=== PATIENT | female | born 1950 | race Caucasian/White ===

== ENCOUNTER 2019-10-06 17:32 | Inpatient (IN) | payer MEDICARE, MEDICAID ==
[~2019-10-06] VITALS: Ht 170.2 cm; Wt 85.9 kg
--- NOTE | 2019-10-06 17:58 | PHYS DOC ---
Past History Past Medical History: CAD, Hypertension Past Medical History Dementia, anxiety, GERD, hypothyroidism, MS, Parkinson's disease Adult General Chief Complaint Chief Complaint: MEDICAL CLEARANCE HPI HPI Patient is a 69-year-old female who presents to the emergency department from her nursing facility, for a medical clearance before admission to the behavioral health unit. According to reports the patient has been having increasing depression, not actively suicidal. She state that she is depressed. She is oriented to person and place. She denies any complaints of pain at this time. She has a chronic indwelling Ruffin catheter which she states is for urinary incontinence. There are no alleviating or exacerbating factors to her symptoms. She states she does not know why she feels so depressed, but referral paperwork sites generalized declining health. Review of Systems Review of Systems Constitutional: Denies fever or chills [] Eyes: Denies change in visual acuity, redness, or eye pain [] HENT: Denies nasal congestion or sore throat [] Respiratory: Denies cough or shortness of breath [] Cardiovascular: The patient denies any shortness of breath, chest pain, palpitations, or orthopnea[] GI: Denies abdominal pain, nausea, vomiting, bloody stools or diarrhea [] : Denies dysuria or hematuria [] Musculoskeletal: Denies back pain or joint pain [] Integument: Denies rash or skin lesions [] Neurologic: Denies headache, focal weakness or sensory changes [] Endocrine: Denies polyuria or polydipsia [] All other systems were reviewed and found to be within normal limits, except as documented in this note. Physical Exam Physical Exam PHYSICAL EXAM: CONSTITUTIONAL: Well developed, well nourished HEAD: normocephalic, atraumatic EENT: PERRL, EOMI. Conjunctivae normal color, sclerae non-icteric; moist mucous membranes. NECK: Supple, non-tender; no meningismus. LUNGS: Lungs CTA, breathing even and unlabored. Normal air movement. HEART: Regular rate and rhythm, no murmur CHEST: No deformity; non-tender ABDOMEN: The abdomen is soft, and non-tender, no masses or bruits. EXTREM: Normal ROM; no deformity, no calf tenderness. Normal pulses palpable in all extremities. There is no pedal edema. SKIN: No rash; no diaphoresis NEURO: Alert; normal speech and cognition; CN's grossly intact; strength grossly intact without focal deficit. BACK: No CVA TTP. Current Patient Data Lab Results Laboratory Tests Test 10/06/19 18:00 10/06/19 19:56 White Blood Count 9.9 x10^3/uL Red Blood Count 5.28 x10^6/uL Hemoglobin 15.0 g/dL Hematocrit 47.1 % Mean Corpuscular Volume 89 fL Mean Corpuscular Hemoglobin 28 pg Mean Corpuscular Hemoglobin Concent 32 g/dL Red Cell Distribution Width 14.0 % Platelet Count 275 x10^3/uL Neutrophils (%) (Auto) 66 % Lymphocytes (%) (Auto) 22 % Monocytes (%) (Auto) 6 % Eosinophils (%) (Auto) 5 % Basophils (%) (Auto) 1 % Neutrophils # (Auto) 6.6 x10^3uL Lymphocytes # (Auto) 2.2 x10^3/uL Monocytes # (Auto) 0.6 x10^3/uL Eosinophils # (Auto) 0.5 x10^3/uL Basophils # (Auto) 0.1 x10^3/uL Sodium Level 143 mmol/L Potassium Level 3.7 mmol/L Chloride Level 106 mmol/L Carbon Dioxide Level 23 mmol/L Anion Gap 14 Blood Urea Nitrogen 21 mg/dL Creatinine 1.4 mg/dL Estimated GFR (Cockcroft-Gault) 37.3 BUN/Creatinine Ratio 15 Glucose Level 101 mg/dL Calcium Level 9.1 mg/dL Magnesium Level 2.1 mg/dL Total Bilirubin 0.5 mg/dL Aspartate Amino Transf (AST/SGOT) 66 U/L Alanine Aminotransferase (ALT/SGPT) 130 U/L Alkaline Phosphatase 120 U/L Total Protein 7.1 g/dL Albumin 3.5 g/dL Albumin/Globulin Ratio 1.0 Urine Collection Type Unknown Urine Color Ai Urine Clarity Turbid Urine pH 7.5 Urine Specific [place] 1.025 Urine Protein 100 mg/dl Urine Glucose (UA) Neg mg/dL Urine Ketones (Stick) Neg mg/dL Urine Blood Small Urine Nitrite Pos Urine Bilirubin Neg Urine Urobilinogen Dipstick 0.2 mg/dL Urine Leukocyte Esterase Large Urine RBC 6-10 /HPF Urine WBC >40 /HPF Urine Squamous Epithelial Cells Occ /LPF Urine Amorphous Sediment Present /HPF Urine Bacteria Many /HPF EKG EKG Normal sinus rhythm at a rate of 76 beats for minute, left axis deviation, normal intervals. Poor anterior R progression without acute ischemic ST/T changes.[] Radiology/Procedures Radiology/Procedures [] Course & Med Decision Making Course & Med Decision Making Pertinent Labs studies reviewed. (See chart for details) [] Dragon Disclaimer Dragon Disclaimer This electronic medical record was generated, in whole or in part, using a voice recognition dictation system. Departure Departure: Impression: Primary Impression: Depression Additional Impression: Urinary tract infection Disposition: ADMITTED INPATIENT Admitting Physician: Other (behavioral health unit) Condition: STABLE Problem Qualifiers CRISELDA LAGOS MD Oct 06, 2019 17:58
--- NOTE | 2019-10-06 18:05 | EKG ---
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
[2019-10-06 18:34] LABS: BASO # 0.1 x10^3/uL (0.0-0.2); BASO % 1 % (0-3); EOS # 0.5 x10^3/uL (0.0-0.7); EOS % 5 % (0-3); HEMATOCRIT 47.1 % (36.0-47.0); LYMPH # 2.2 x10^3/uL (1.0-4.8); LYMPH % 22 % (24-48); MEAN CORPUSCULAR HEMOGLOBIN 28 pg (25-35); MEAN CORPUSCULAR HGB CONC 32 g/dL (31-37); MEAN CORPUSCULAR VOLUME 89 fL (79-100); MONO # 0.6 x10^3/uL (0.0-1.1); MONO % 6 % (0-9); NEUT # 6.6 x10^3uL (1.8-7.7); NEUT % 66 % (31-73); PLATELET COUNT 275 x10^3/uL (140-400); RED BLOOD COUNT 5.28 x10^6/uL (3.50-5.40); WHITE BLOOD COUNT 9.9 x10^3/uL (4.0-11.0)
[2019-10-06 18:37] LABS: CALCIUM 9.1 mg/dL (8.5-10.1); CREATININE 1.4 mg/dL (0.6-1.0); GFR 37.3; POTASSIUM 3.7 mmol/L (3.5-5.1)
[2019-10-06 18:43] LABS: ALBUMIN 3.5 g/dL (3.4-5.0); MAGNESIUM 2.1 mg/dL (1.8-2.4); TOTAL BILIRUBIN 0.5 mg/dL (0.2-1.0); TOTAL PROTEIN 7.1 g/dL (6.4-8.2)
[2019-10-06 20:47] LABS: AMORPHOUS SEDIMENT,UR PRESENT /HPF; BACTERIA,URINE MANY /HPF (0-FEW); BILIRUBIN,URINE NEG (NEG); CLARITY,URINE TURBID; COLOR,URINE AMBER; GLUCOSE,URINE NEG (NEG); NITRITE,URINE POS (NEG); SQUAMOUS EPITHELIAL CELL,UR OCC /LPF; UROBILINOGEN,URINE 0.2 mg/dL (0.2 mg/dL); WBC,URINE >40 /HPF (0-4)
[2019-10-06] MEDS ORDERED: CEPHALEXIN 250 MG CAPSULE PO ONE (21:00)
--- NOTE | 2019-10-06 22:05 | NUR ---
Admission Note with Justification for Admission to [facility] Patient admitted to [facility] for protective oversight for emergency stabilization of acute psychiatric crisis. Pt admitted from: SNF after [facility] ER medical clearance Mode of arrival: EMS Accompanied By: EMS/NSO Precipitating behaviors that initiated intake and admission: increased depression, wants to end it Description of failure of out patient attempts at stabilization in previous setting list behavior and medication trials: counseling and med changes Behaviors and assessment findings upon admission: alert, cooperative VSS, confused, chronic vazquez in place with malodorous urine Plan: Admit for protective oversight for adjustment and stabilization of medications, behaviors and mood. Intense treatment regimen including groups, medication adjustments, therapy, consistent regimen for ADL's, self care, and sleep hygiene. Daily monitoring by Inpatient staff, Psychiatry, and Medical Physician.
[2019-10-06 23:06] VITALS: BP 168/87
[2019-10-07] MEDS ORDERED: ACETAMINOPHEN 325 MG TABLET PO PRN
[2019-10-07] MEDS ORDERED: METHYL SALICYLATE/MENTHOL TOPICAL OINTMENT 57GM TUBE. TP PRN
[2019-10-07] MEDS ORDERED: MAG HYDROX/AL HYDROX/SIMETH 30 ML ORAL.SUSP PO PRN
[2019-10-07] MEDS ORDERED: AMAN100T PO (00:58)
[2019-10-07] MEDS ORDERED: LOPE2TAB27 PO (00:58)
[2019-10-07] MEDS ORDERED: NYST15PO9 TP (00:58)
[2019-10-07] MEDS ORDERED: ASPI81TA50 PO (00:58)
[2019-10-07] MEDS ORDERED: VITA1TAB31 PO (00:58)
[2019-10-07] MEDS ORDERED: AMLO5TAB4 PO (00:58)
[2019-10-07] MEDS ORDERED: BACL10TA PO (00:58)
[2019-10-07] MEDS ORDERED: CETI10TA24 PO (00:58)
[2019-10-07] MEDS ORDERED: PARO10TA57 PO (00:58)
[2019-10-07] MEDS ORDERED: CRAN450T3 PO (00:58)
[2019-10-07] MEDS ORDERED: LEVO112T4 PO (00:58)
[2019-10-07] MEDS ORDERED: DEXT15LI7 PO (00:58)
[2019-10-07] MEDS ORDERED: POLY17PO5 PO (00:58)
[2019-10-07] MEDS ORDERED: SENN1TAB99 PO (00:58)
[2019-10-07] MEDS ORDERED: FAMO-63 PO (00:58)
[2019-10-07] MEDS ORDERED: IBUP400T18 PO (00:58)
[2019-10-07] MEDS ORDERED: PYRI25TA3 PO (00:58)
[2019-10-07] MEDS ORDERED: FOLI20CA PO (00:58)
[2019-10-07] MEDS ORDERED: FOLI0.8T33 PO (00:58)
[2019-10-07] MEDS ORDERED: BUSP5TAB PO (00:58)
[2019-10-07] MEDS ORDERED: POLY15DR27 EACHEYE (00:58)
[2019-10-07 06:42] VITALS: BP 172/90
[2019-10-07] MEDS ORDERED: DEXTROMETHORPHAN HBR PO PRN (07:45)
[2019-10-07] MEDS ORDERED: LOPERAMIDE HCL 2 MG PO PRN (07:45)
[2019-10-07] MEDS ORDERED: LOPERAMIDE 2 MG CAPSULE PO PRN (08:00)
[2019-10-07] MEDS ORDERED: AMANTADINE HCL 100 MG PO SCH (09:00)
[2019-10-07] MEDS ORDERED: PYRIDOXINE HCL 50 MG PO SCH (09:00)
[2019-10-07] MEDS ORDERED: NON FORMULARY ITEM (Folic Acid 1 CAP) PO SCH (09:00)
[2019-10-07] MEDS ORDERED: CRANBERRY FRUIT PO SCH (09:00)
[2019-10-07] MEDS: ASPIRIN ENTERIC COATED 81 MG TABLET.DR. PO SCH (09:00)
[2019-10-07] MEDS ORDERED: VITAMIN K2 PO SCH (09:00)
[2019-10-07] MEDS ORDERED: VITAMIN D3 PO SCH (09:00)
[2019-10-07] MEDS: SENNOSIDES/DOCUSATE 8.6/50MG TABLET. PO SCH ×2 (09:46→19:57)
[2019-10-07] MEDS: FOLIC ACID 1 MG TABLET PO SCH (09:46)
[2019-10-07] MEDS: CETIRIZINE HCL 10 MG TABLET PO SCH (09:47)
[2019-10-07] MEDS: BACLOFEN 10 MG TABLET PO SCH ×2 (09:47→16:09)
[2019-10-07] MEDS: busPIRone 5 MG TABLET. PO SCH ×3 (09:47→19:58)
[2019-10-07] MEDS: amLODIPine BESYLATE 5 MG TABLET PO SCH (09:47)
[2019-10-07] MEDS: FAMOTIDINE 20 MG TABLET PO SCH (09:48)
[2019-10-07] MEDS: AMANTADINE HCL 100 MG CAPSULE PO SCH (10:09)
[2019-10-07] MEDS: PYRIDOXINE 50 MG TABLET. PO SCH (10:09)
[2019-10-07] MEDS: POLYVINYL ALCOHOL 1.4% OPHTH SOLUTION 15ML BOTTLE. OU SCH ×2 (10:10→19:58)
[2019-10-07] MEDS: CHOLECALCIFEROL (VITAMIN D3) 1,000 UNIT TABLET PO SCH (10:20)
--- NOTE | 2019-10-07 11:42 | NUR ---
PSYCHOSOCIAL ASSESSMENT ADMISSION DATE: 10/06/19 CONTACT INFORMATION: DPOA/Guardian Contact Name: Not Enacted - Chavez Elmore (Michael) Contact Address: [place], [place] Contact Phone #: [phone] ETHNIC ORIGIN: REASONS FOR ADMISSION: Depressed and Suicidal ideation - passive thoughts ADDITIONAL ADMISSION COMMENTS: Per pt. intake, pt. is increasingly depressed, wants it to end but denies SI, crying spells, declining ultrasound, sad about multiple health issues requiring placement, and wants to go to sleep and not wake up. REASON FOR ADMISSION IN PATIENT/FAMILY'S OWN WORDS: Per pt., "I guess cause I said I wanted to ." "They thought I wanted to kill myself." "I just have a big mouth." PATIENT/FAMILY EXPECTATIONS FOR ADMISSION: Per pt., "I don't have any hopes, just to make it through the time and get back to [place]. LIVING SITUATION: [facility] Contact Name: [facility] Contact Address: [place] [address] Contact Phone #: [phone] Contact Fax #: [phone] FAMILY RELATIONS: Marital Status: # of Marriages: 1 Pt. shared she has been for approximately 20 years. # of Children: 0 [facility] Family Support: Pt. is a self-sign. SIGNIFICANT PSYCHIATRIC/MEDICAL HISTORY: Psychiatric/Treatment History: Per pt., "no". Per pt. intake, pt. has Parkinson's, MS, anxiety, Dementia with BD, and MDD. Pertinent Family History: Per pt., "I don't think so." HISTORICAL DATA: Childhood Environment: "It was good." Pt. grew up, in [place], with her mother, father, and two younger brothers, Silvano and Andrew. Pt. brothers and father are still living. Psychological Abuse: None Drug Abuse History last 12 months: No - Pt. reports she drink occasionally. 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 is interested in "theater, performance, live performance, concerts, and tv." Financial support/resources: Social Security Monthly income: Unknown Person handling finances: Pt. believes her father, Oumar, is in charge of her finances. Do you have a history of legal problems: N Cultural considerations: "I don't think so." SOCIAL RELATIONSHIPS-CURRENT/PAST: Psychiatrist: None PCP: Dr. Campos Counselor/Therapist: Dr. Mercer, psychologist [facility] [facility]: None Support Group: None Health Type Technician/Log Chain Worker: None Other relationships: None STRENGTHS & WEAKNESSES: Patient's strengths: Stable living arrangement and Approachable Patient's weaknesses: Health problems and Passive Suicidal Thoughts PRELIMINARY PLAN OF TREATMENT: Preliminary plan: Decrease Symptoms Depression, Promote Coping Skill, No Suicidal Ideation, Medication Stabilization, and Monitor Med Effects DISCHARGE PLANNING: Discharge planning/disposition: Current Living Arrangement ADDITIONAL INFORMATION: Pt. was able to supply the information need for this assessment and has given permission to speak to her brother, Chavez, if needed. Pt. also stated, "I have MS" and "I am overly dramatic".
[2019-10-07 13:42] LABS: THYROID STIM HORMONE (TSH) 1.904 uIU/mL (0.358-3.740)
[2019-10-07] MEDS: FOLIC/VIT B COMP W-C (RENAL) TABLET. PO SCH (16:09)
[2019-10-07 16:28] VITALS: BP 157/85
[2019-10-07 17:07] LABS: THYROXINE 12.5 ug/dL (4.5-12.0)
--- NOTE | 2019-10-07 17:50 | NUR ---
Pt alert and oriented to self and situation. Pt calm, compliant with meds and assessment, pleasant and interactive. Pt also states she has no intention of harming herself, that she just is dramatic and has a big mouth sometimes. She said sometimes she just gets down about her health and her situation.
[2019-10-07] MEDS: PARoxetine 10 MG TABLET PO SCH (19:57)
--- NOTE | 2019-10-07 21:23 | PDOC ---
Exam Note: Matt Note: Please also refer to the separate dictated note~for this date of service dictated separately. Discussed the patient with Nursing staff reviewed the chart.~Reviewed interim history and current functioning. Reviewed vital signs,~Labs/ Radiology~and current medications noted below. Continue current treatment with the changes noted in the dictated addendum note Assessment: Vital Signs/I&O: Vital Signs Date Time Temp Pulse Resp B/P (MAP) Pulse Ox O2 Delivery O2 Flow Rate FiO2 10/07/19 16:28 98.3 100 16 157/85 (109) 96 10/07/19 06:42 Room Air I & O 10/06/19 10/06/19 10/07/19 15:00 23:00 07:00 Output Total 500 ml Balance -500 ml Current Medications: Meds: Current Medications Medications (Trade) Dose Ordered Sig/Juanpablo Route PRN Reason Start Time Stop Time Status Last Admin Dose Admin Amlodipine Besylate (Norvasc) 5 mg DAILY PO 10/07/19 09:00 10/07/19 09:47 Aspirin (Aspirin Enteric Coated) 81 mg DAILY PO 10/07/19 09:00 10/07/19 09:00 Baclofen (Lioresal) 10 mg BID94 PO 10/07/19 09:00 10/07/19 16:09 Buspirone HCl (Buspar) 2.5 mg [id number] PO 10/07/19 09:00 10/07/19 19:58 Cetirizine HCl (ZyrTEC) 10 mg DAILY PO 10/07/19 09:00 10/07/19 09:47 Famotidine (Pepcid) 40 mg DAILY PO 10/07/19 09:00 10/07/19 09:48 Multivit/Ca Carb/ B Cmplx/FA/Prenat (Nephro-Raymond) 1 tab DAILY16 PO 10/07/19 16:00 10/07/19 16:09 Paroxetine HCl (Paxil) 10 mg HS PO 10/07/19 21:00 10/07/19 19:57 Artificial Tears (Artificial Tears) 2 drop BID OU 10/07/19 09:00 10/07/19 19:58 Senna/Docusate Sodium (Senna Plus) 1 tab BID PO 10/07/19 09:00 10/07/19 19:57 Amantadine HCl (Symmetrel) 100 mg DAILY PO 10/07/19 09:00 10/07/19 10:09 Folic Acid (Folic Acid) 1 mg DAILY PO 10/07/19 09:00 10/07/19 09:46 Pyridoxine HCl (Vitamin B-6) 50 mg DAILY PO 10/07/19 09:00 10/07/19 10:09 Vitamin D (Vitamin D3) 5,000 unit DAILY PO 10/07/19 09:00 10/07/19 10:20 I have reviewed the current psychotropics carefully including drug interactions. Risk benefit ratio favors no change other than as noted in my dictated progress note. Diagnosis: Problems: (1) Depression (2) Suicidal ideation KELLY MARIE MD Oct 07, 2019 21:23
[2019-10-07] MEDS: IBUPROFEN 400 MG TABLET. PO PRN (22:00)
--- NOTE | 2019-10-07 23:59 | CONS ---
DATE OF CONSULTATION: 10/07/2019 REASON FOR CONSULTATION: Medical management. HISTORY OF PRESENT ILLNESS: The patient is a 69-year-old female patient, a resident at [facility], who was admitted on account of increasing depression, wants it to end, but is denying any suicidal ideation, sad about multiple health problems that require placement in a facility, having crying spells and states that she wants to go to sleep and not wake up, all this in a background of severe major depressive disorder. PAST MEDICAL HISTORY: Significant for multiple sclerosis, Parkinson disease, hypertension, hypothyroidism, neurogenic bladder, coronary artery disease, constipation, chronic kidney disease, anemia, and gastroesophageal reflux disease. PAST PSYCHIATRIC HISTORY: Significant for anxiety, major depressive disorder and dementia with behavioral disturbances. PAST SURGICAL HISTORY: Significant for tonsillectomy. FAMILY HISTORY: Noncontributory. SOCIAL HISTORY: She is single, never , has no children. She never smoked, used to drink alcohol occasionally. 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 ALLERGIES: She has no known drug allergies. MEDICATIONS: She is currently on following medications: She is on cetirizine 10 mg once a day, baclofen 10 mg twice a day, amlodipine besylate 5 mg daily, aspirin 81 mg once a day, ibuprofen 400 mg every 4 hours, paroxetine 10 mg daily at bedtime, buspirone 2.5 mg 3 times a day, amantadine 100 mg daily, dextromethorphan 10 mL every 8 hours for cough, polyvinyl alcohol for artificial tears 2 drops to both eyes twice a day, loperamide 2 mg daily p.r.n. for diarrhea, polyethylene glycol 17 grams daily, Senna-S twice a day, famotidine 40 mg once a day, levothyroxine sodium 112 mcg once a day, nystatin powder topically twice a day, folic acid 1 capsule daily, folic acid vitamin B complex for Nephro-Raymond 1 tablet once a day, pyridoxine 50 mg once a day, vitamin D plus K once a day, cranberry fruit 475 mg twice a day. PHYSICAL EXAMINATION: GENERAL: When I examined her, she looked well and was clearly in no apparent respiratory distress. There was no pallor, jaundice, cyanosis or thyromegaly. No jugular venous distention. No limb edema. VITAL SIGNS: Her heart rate was 81, blood pressure 157/85, temperature 98.3, respiratory rate was 16, and oxygen saturation was 96%. HEAD, EYES, EARS, NOSE AND THROAT: Showed normocephalic, atraumatic. NECK: Supple. HEART: Showed normal first and second heart sounds. No gallop or murmur. CHEST: Clear to auscultation. No crepitation or rhonchi. ABDOMEN: Distended, soft, nontender. NEUROLOGIC: She is awake, alert, responding appropriately. Cranial nerves intact. She moves upper extremities without difficulty. She has functional paraplegia with neurogenic bladder requiring suprapubic catheter. LABORATORY WORK: Showed a white cell count 9900, hemoglobin 15, hematocrit 47, MCV 89 and platelet count 275,000. Her serum sodium was 143, potassium 3.7, chloride 106, bicarbonate 23, anion gap of 14, BUN 21, creatinine 1.4, estimated GFR was 57 mL per minute. Her glucose 101, calcium was 9.1, magnesium was 2.1. Her serum iron 42, TIBC 268 and iron saturation was 16 ng. Her total bilirubin is normal; however, AST, ALT, alkaline phosphatase are all elevated. Total protein was 7.1, albumin 3.5. Serum triglyceride was 190, total cholesterol 182, LDL cholesterol was 98, VLDL was 38, HDL was 46 and the ratio was 3. Her TSH was normal at 1.904. Urinalysis showed the urine was positive for nitrite. There was large amount of leukocyte esterase, 6-10 rbc's, and more than 40 wbc's, and many bacteria. IMPRESSION: In summary, this is a 69-year-old female patient, a resident at [facility], who was admitted on account of increased depression, wanting it to end, although she is denying suicidal ideation, sad about multiple health problems that require placement in a facility, having crying spells and stated that she wants to go to sleep and not wake up. The patient has multiple medical problems including multiple sclerosis, Parkinson disease, hypertension, hypothyroidism, gastroesophageal reflux disease, neurogenic bladder, constipation, and anemia. All in all, the patient seems to be medically stable. Her urinalysis probably indicates that she has a urinary tract infection and probably needs urine to be sent for culture and sensitivity. Other than that, I would continue all her other medications as they are now. I will follow all her other lab works that are still pending at the time of this dictation and make any necessary recommendation. Thank you Dr. Enrique for allowing me to participate in the care of this patient. TORY CHAVIS MD DR: AXEL/rima JOB#: [id number] / [id number]
[2019-10-08 00:07] LABS: HEMOGLOBIN A1C 5.3 % (4.8-5.6)
--- NOTE | 2019-10-08 00:18 | NUR ---
Last evening pt sat in day room watching a movie. She has been pleasant and cooperative and denies SI. Meds taken whole without difficulty. PRN ibuprofen given for SANCHEZ at HS and she has been sleeping well. No behaviors tonight.
[2019-10-08 06:37] VITALS: BP 132/80
[2019-10-08] MEDS: ASPIRIN ENTERIC COATED 81 MG TABLET.DR. PO SCH (08:54)
[2019-10-08] MEDS: POLYVINYL ALCOHOL 1.4% OPHTH SOLUTION 15ML BOTTLE. OU SCH ×2 (08:54→21:09)
[2019-10-08] MEDS: LEVOTHYROXINE 112 MCG TABLET PO SCH (08:54)
[2019-10-08] MEDS: busPIRone 5 MG TABLET. PO SCH ×3 (08:54→21:09)
[2019-10-08] MEDS: SENNOSIDES/DOCUSATE 8.6/50MG TABLET. PO SCH ×2 (08:55→21:08)
[2019-10-08] MEDS: FAMOTIDINE 20 MG TABLET PO SCH (08:55)
[2019-10-08] MEDS: BACLOFEN 10 MG TABLET PO SCH ×2 (08:55→17:12)
[2019-10-08] MEDS: FOLIC ACID 1 MG TABLET PO SCH (08:55)
[2019-10-08] MEDS: amLODIPine BESYLATE 5 MG TABLET PO SCH (08:55)
[2019-10-08] MEDS: CETIRIZINE HCL 10 MG TABLET PO SCH (08:57)
[2019-10-08] MEDS: CHOLECALCIFEROL (VITAMIN D3) 1,000 UNIT TABLET PO SCH (08:57)
[2019-10-08] MEDS: PYRIDOXINE 50 MG TABLET. PO SCH (08:57)
[2019-10-08] MEDS: AMANTADINE HCL 100 MG CAPSULE PO SCH (08:57)
--- NOTE | 2019-10-08 09:45 | NUR ---
ACTIVITY THERAPY ASSESSMENT: Pt was sitting down in her wheel chair in the hallway during the assessment. Pt was calm, smiling, and willing to talk. Pt can verbally express herself and uses a wheel chair to ambulate due to MS (multiple sclerosis). Pt has long black, greyish hair and wears her hair in a pony tail design and she wears glasses. Pt remembers her past, family, location, present, and she makes eye contact, listens and responds during communication. Pt is and she the eldest born of three. She has two brothers whom live near close by. Pt enjoys music, theatre, live music, movies, funk, jazz, singing, reading, and most of all she enjoys people. 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 INITAIL TREATMENT GOAL: Pt will increase recreation education and motivation by engaging in at least five activity therapy groups per week. Addendum: 10/13/19 at 1218 by JEAN-PAUL CARBAJAL ACT Goal changed 10/13/2019: Pt. will participate in all Activity Therapy groups she is invited to.
--- NOTE | 2019-10-08 12:59 | NUR ---
Pt is calm, cooperative, compliant. No agitation, no aggression, no hallucinations, no delusions. She is compliant with her medication and assessment.
[2019-10-08 16:29] VITALS: BP 119/76
[2019-10-08] MEDS: FOLIC/VIT B COMP W-C (RENAL) TABLET. PO SCH (17:20)
[2019-10-08] MEDS: PARoxetine 10 MG TABLET PO SCH (21:08)
[2019-10-08] MEDS: IBUPROFEN 400 MG TABLET. PO PRN (21:11)
--- NOTE | 2019-10-08 21:21 | HP ---
ADMIT DATE: 10/07/2019 PSYCHIATRY ADMISSION HISTORY/EVALUATION This late entry date of service 10/07/2019 covers the elements not covered in my initial note. IDENTIFYING DATA: The patient is a 69-year-old female referred to us from [facility] by Dr. Campos, primary care physician on account of worsening symptoms of depression with suicidal ideation and "she wants to end it." The patient minimizes suicidal ideation, but admits to being sad about multiple health problems that require placement in a facility. She has been having crying spells and wants to "go to sleep and not wake up." She does have multiple sclerosis, Parkinson's disease, hypertension, heart disease, hypothyroidism, GERD and all of these medical issues are overwhelming for her. I met with the patient in the evening of 10/07/2019. CHIEF COMPLAINT: "Yes, I am depressed, but I am not going to hurt myself." HISTORY OF PRESENT ILLNESS: The patient has a history of worsening symptoms of depression, feeling hopeless, helpless, and worthless. She has had some sleep and appetite changes, suicidal ideation, which she minimizes. No clear history of bipolar disorder. Cognitively, she is reasonably intact. PAST PSYCHIATRIC HISTORY: As above. She has been seeing Dr. Mercer psychologist at the facility. MEDICAL HISTORY: Positive for multiple sclerosis, Parkinson's disease, hypertension, heart disease, hypothyroidism, GERD, allergic rhinitis, neurogenic bladder, coronary artery disease, chronic constipation, chronic kidney disease, and anemia. ACCU-CHEKS: None. DRUG ALLERGIES: Negative. CODE STATUS: Full code. DIET: Regular. Takes medications whole. Ambulates in wheelchair. UA reflexed to culture. Received 1 dose of Keflex in the ER. CURRENT PSYCHOTROPICS: Paxil 10 mg a day, BuSpar 2.5 mg t.i.d. FAMILY HISTORY: Noncontributory. SOCIAL HISTORY: No history of alcohol, drug abuse, physical, sexual or elder abuse. She is not known to be a perpetrator. 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 REACTION TO HOSPITALIZATION: The patient accepting of it. ASSETS: Cognitively intact, supportive, living at the facility. MENTAL STATUS EXAMINATION: The patient was seen individually in the evening of 10/07/2019. She is in a wheelchair, oriented reasonably. Speech is coherent. Thought processes goal directed. Intellect is average. Insight is good. Judgment is intact. Mood is depressed, though she denies suicidal ideation. Affect is mood congruent. IMPRESSION: Major depressive disorder, recurrent; anxiety disorder, unspecified; mild cognitive impairment. Rest diagnoses as above. PLAN: Admit to Geropsychiatry Unit at [facility]. I will see the patient daily individually from a psychiatric standpoint. Medical followup with Dr. Christina. Continue the patient on her current psychotropics. Consider increasing BuSpar and Paxil. If paranoia is evident, may consider Abilify both for the paranoia and to augment the antidepressant. We will make all these decisions post baseline assessment. Estimated length of stay 10-12 days. DISPOSITION: Plans back to senior care when stable. MAN Gaurav MARIE MD DR: JANIYA/rima JOB#: [id number] / [id number]
--- NOTE | 2019-10-08 21:22 | PDOC ---
Exam Note: Matt Note: Please also refer to the separate dictated note~for this date of service dictated separately.~Patient seen individually. Discussed the patient with Nursing staff reviewed the chart.~Reviewed interim history and current functioning. Reviewed vital signs,~Labs/ Radiology~and current medications noted below. Continue current treatment with the changes noted in the dictated addendum note Assessment: Vital Signs/I&O: Vital Signs Date Time Temp Pulse Resp B/P (MAP) Pulse Ox O2 Delivery O2 Flow Rate FiO2 10/08/19 16:29 97.6 94 16 119/76 (90) 96 Room Air I & O 10/07/19 10/07/19 10/08/19 15:00 23:00 07:00 Intake Total 240 ml 480 ml 240 ml Balance 240 ml 480 ml 240 ml Current Medications: Meds: Current Medications Medications (Trade) Dose Ordered Sig/Juanpablo Route PRN Reason Start Time Stop Time Status Last Admin Dose Admin Levothyroxine Sodium (Synthroid) 112 mcg DAILYAC PO 10/08/19 07:30 10/08/19 08:54 I have reviewed the current psychotropics carefully including drug interactions. Risk benefit ratio favors no change other than as noted in my dictated progress note. Diagnosis: Problems: (1) Anxiety disorder (2) Depression (3) Major depressive disorder, recurrent episode (4) Suicidal ideation (5) Impulse control disorder KELLY MARIE MD Oct 08, 2019 21:22
--- NOTE | 2019-10-08 23:53 | NUR ---
Nursing Note Pt states "I had no intention of killing myself, I was just angry about having MS, and who wouldn't be? So then they send me to this fucking [facility] bin where I don't belong, I need to get the fuck out of here!!" I told her that her feelings are just that her feelings, and that we are a short stay unit. I told her she had every right to be angry and that anyone in her situation would feel angry about the loss of control and loss of independence. Pt was thankful to have someone listen and validate her feelings.
[2019-10-09 06:33] VITALS: BP 119/77
[2019-10-09] MEDS: ASPIRIN ENTERIC COATED 81 MG TABLET.DR. PO SCH (08:23)
[2019-10-09] MEDS: FAMOTIDINE 20 MG TABLET PO SCH (08:24)
[2019-10-09] MEDS: FOLIC ACID 1 MG TABLET PO SCH (08:24)
[2019-10-09] MEDS: SENNOSIDES/DOCUSATE 8.6/50MG TABLET. PO SCH ×2 (08:24→19:55)
[2019-10-09] MEDS: amLODIPine BESYLATE 5 MG TABLET PO SCH (08:24)
[2019-10-09] MEDS: BACLOFEN 10 MG TABLET PO SCH ×2 (08:24→17:14)
[2019-10-09] MEDS: busPIRone 5 MG TABLET. PO SCH ×3 (08:24→19:55)
[2019-10-09] MEDS: AMANTADINE HCL 100 MG CAPSULE PO SCH (08:25)
[2019-10-09] MEDS: CETIRIZINE HCL 10 MG TABLET PO SCH (08:25)
[2019-10-09] MEDS: CHOLECALCIFEROL (VITAMIN D3) 1,000 UNIT TABLET PO SCH (08:25)
[2019-10-09] MEDS: PYRIDOXINE 50 MG TABLET. PO SCH (08:25)
[2019-10-09] MEDS: LEVOTHYROXINE 112 MCG TABLET PO SCH (08:26)
[2019-10-09] MEDS: POLYVINYL ALCOHOL 1.4% OPHTH SOLUTION 15ML BOTTLE. OU SCH ×2 (08:26→19:56)
--- NOTE | 2019-10-09 10:51 | NUR ---
She is compliant with her medication and assessment. Pt is calm, cooperative, compliant. No agitation, no aggression, no hallucinations, no delusions.
--- NOTE | 2019-10-09 11:30 | NUR ---
Pts dad called and stated he spoke with pt and she stated she was angry. Nurse informed pts dad that she would follow up with pt. Nurse spoke with pt, pt stated "yeah I'm angry, I'm angry I'm here." Pt verbalized to nurse and BRASS MOLDER that she was attempting to verbalize her feelings to staff at [facility] and that she felt staff did not listen to her and now "I'm in a looney bin." Nurse and BRASS MOLDER offered emotional support and validated pts feelings. Nurse offered pt 1:1 time with nurse. Nurse braided pts hair and spoke more in depth about her statement. Pt stated she meant that she has taken her diagnosis of MS in stride and that she has never complained and many other people are worse off than her. She said she was trying to verbalize that she was frustrated with having to live her life that way if was and that is all she meant when she made the comment "I wish I were ." Nurse also offered pt cecelia fire and redirected pt to the dayroom.
[2019-10-09 16:16] VITALS: BP 135/82
--- NOTE | 2019-10-09 16:26 | NUR ---
Dr. Christina informed of pts urine C & S new order for levaquin 250mg daily X 7 days.
[2019-10-09] MEDS ORDERED: levoFLOXacin 250 MG TABLET PO SCH (17:00)
[2019-10-09] MEDS: FOLIC/VIT B COMP W-C (RENAL) TABLET. PO SCH (17:14)
[2019-10-09] MEDS: IBUPROFEN 400 MG TABLET. PO PRN (19:54)
[2019-10-09] MEDS: LACTOBACILLUS RHAMNOSUS GG 1 CAPSULE. PO SCH (19:54)
[2019-10-09] MEDS: NYSTATIN TOPICAL POWDER 15GM BOTTLE. TP PRN (19:54)
[2019-10-09] MEDS: PARoxetine 10 MG TABLET PO SCH (19:55)
[2019-10-09] MEDS: levoFLOXacin 250 MG TABLET PO SCH (19:55)
[2019-10-09] MEDS ORDERED: INTE30SY IM (21:03)
[2019-10-09] MEDS ORDERED: HYDR-2759 PO (21:11)
[2019-10-09] MEDS ORDERED: IPRA3AMP29 NEB (21:11)
[2019-10-09] MEDS: INTERFERON BETA 30 MCG IM SCH (21:15)
--- NOTE | 2019-10-09 21:27 | PDOC ---
Exam Note: Matt Note: Please also refer to the separate dictated note~for this date of service dictated separately.~Patient seen individually. Discussed the patient with Nursing staff reviewed the chart.~Reviewed interim history and current functioning. Reviewed vital signs,~Labs/ Radiology~and current medications noted below. Continue current treatment with the changes noted in the dictated addendum note Assessment: Vital Signs/I&O: Vital Signs Date Time Temp Pulse Resp B/P (MAP) Pulse Ox O2 Delivery O2 Flow Rate FiO2 10/09/19 16:16 97.7 90 20 135/82 (99) 95 10/08/19 16:29 Room Air I & O 10/08/19 10/08/19 10/09/19 15:00 23:00 07:00 Intake Total 570 ml 360 ml 240 ml Output Total 500 ml Balance 570 ml -140 ml 240 ml Current Medications: Meds: Current Medications Medications (Trade) Dose Ordered Sig/Juanpablo Route PRN Reason Start Time Stop Time Status Last Admin Dose Admin Buspirone HCl (Buspar) 5 mg BEV198 PO 10/09/19 09:00 10/09/19 19:55 Lactobacillus Rhamnosus (Culturelle) 1 cap BID PO 10/09/19 21:00 10/09/19 19:54 Levofloxacin (Levaquin) 250 mg Q24H PO 10/09/19 21:00 10/15/19 21:01 10/09/19 19:55 I have reviewed the current psychotropics carefully including drug interactions. Risk benefit ratio favors no change other than as noted in my dictated progress note. Diagnosis: Problems: (1) Depression (2) Anxiety disorder (3) Suicidal ideation (4) Major depressive disorder, recurrent episode (5) Impulse control disorder (6) Mild cognitive impairment KELLY MARIE MD Oct 09, 2019 21:27
[2019-10-09] MEDS ORDERED: ALBUTEROL SULFATE 2.5 MG/3 ML NEBU. NEB PRN (21:30)
--- NOTE | 2019-10-10 | NUR ---
Nursing Note Pt reiterates that she doesn't belong here with all these crazy people in this fucking looney bin, states she wants to leave and is bored here. Gave her a cecelia and she stated that it helps keep things off her mind, a good distraction. Also she is upset that she had to move into a [facility], again control and independence loss. Pt inquired about her MS injection, orders written from home med list. Pt cooperative and compliant.
[2019-10-10] MEDS: LEVOTHYROXINE 112 MCG TABLET PO SCH (06:00)
[2019-10-10 06:01] VITALS: BP 145/75
[2019-10-10] MEDS: BACLOFEN 10 MG TABLET PO SCH ×2 (08:36→16:48)
[2019-10-10] MEDS: FOLIC ACID 1 MG TABLET PO SCH (08:36)
[2019-10-10] MEDS: ASPIRIN ENTERIC COATED 81 MG TABLET.DR. PO SCH (08:36)
[2019-10-10] MEDS: LACTOBACILLUS RHAMNOSUS GG 1 CAPSULE. PO SCH ×2 (08:36→20:20)
[2019-10-10] MEDS: DULoxetine HCL 30 MG CAPSULE.DR PO SCH (08:36)
[2019-10-10] MEDS: busPIRone 5 MG TABLET. PO SCH ×3 (08:36→20:19)
[2019-10-10] MEDS: amLODIPine BESYLATE 5 MG TABLET PO SCH (08:37)
[2019-10-10] MEDS: SENNOSIDES/DOCUSATE 8.6/50MG TABLET. PO SCH ×2 (08:37→20:20)
[2019-10-10] MEDS: AMANTADINE HCL 100 MG CAPSULE PO SCH (08:37)
[2019-10-10] MEDS: FAMOTIDINE 20 MG TABLET PO SCH (08:37)
[2019-10-10] MEDS: PYRIDOXINE 50 MG TABLET. PO SCH (08:38)
[2019-10-10] MEDS: CETIRIZINE HCL 10 MG TABLET PO SCH (08:38)
[2019-10-10] MEDS: CHOLECALCIFEROL (VITAMIN D3) 1,000 UNIT TABLET PO SCH (08:38)
[2019-10-10] MEDS: POLYVINYL ALCOHOL 1.4% OPHTH SOLUTION 15ML BOTTLE. OU SCH ×2 (09:00→20:22)
--- NOTE | 2019-10-10 10:44 | NUR ---
Pt is calm, cooperative, compliant. No agitation, no aggression, no hallucinations, no delusions. She is compliant with her medication and assessment.
--- NOTE | 2019-10-10 11:39 | NUR ---
KIRA left msg. for KIRA Be at [facility], to give her an update on pt. progress. Addendum: 10/11/19 at 1151 by SIOBHAN MALONE KIRA left a second msg. for KIRA Be at [facility].
--- NOTE | 2019-10-10 14:45 | PN ---
DATE: 10/09/2019 PSYCHIATRIC PROGRESS NOTE This late entry 10/09/2019 covers elements not covered in my initial note. SUBJECTIVE: I met with the patient evening of 10/09/2019. Per RONNIE Sprague, the patient slept 6-1/2 hours previous night. She remains depressed, states she is frustrated with her medical condition, specifically the multiple sclerosis. She has crying spells at times. REVIEW OF SYSTEMS: Positive for the chronic pain, impaired ambulation, in wheelchair. No CV, , pulmonary, eye system symptoms on review. She might have UTI. MENTAL STATUS EXAM: Reasonably oriented. Speech is coherent, has some latency. Abstraction fair, computation impaired, language function intact. Mood and affect still depressed. No active suicidal ideation. LABORATORY DATA: Reviewed. IMPRESSION: Major depressive disorder, recurrent, severe anxiety disorder, unspecified; chronic pain. PLAN: Taper and stop the Paxil down to 5 mg a day for 5 days and stop it and start Cymbalta 30 mg a day for 3 days, then 60 mg a day. Maintain BuSpar 5 mg t.i.d. Rest unchanged for now. MAN Gaurav MARIE MD DR: JANIYA/rima JOB#: [id number] / [id number]
--- NOTE | 2019-10-10 14:48 | PN ---
DATE: 10/10/2019 PSYCHIATRIC PROGRESS NOTE This late entry 10/08/2019 covers elements not covered in my initial note. SUBJECTIVE: I met with the patient evening of 10/08/2019. According to RONNIE Sprague, the patient slept 5-3/4 hours previous night. She remains somewhat anxious, dramatic regarding possibility of UTI, did better earlier in the day. REVIEW OF SYSTEMS: Ambulation impaired, in wheelchair. No CV, , pulmonary, eye, ENT system symptoms on review. MENTAL STATUS EXAMINATION: The patient is reasonably oriented. Speech is coherent, abstraction fair, computation impaired, language function intact, attention span short. Mood and affect remains anxious, depressed. LABORATORY DATA: Reviewed. IMPRESSION: Unchanged from initial note. PLAN: Increase BuSpar from 2.5 mg t.i.d. to 5 mg t.i.d. Continue Paxil 10 mg a day. Consider changing to Cymbalta given her chronic pain symptoms and that the SNRIs might be more effective than the SSRI Paxil. Addressed this with the family. KELLY MARIE MD DR: JANIYA/rima JOB#: [id number] / [id number]
--- NOTE | 2019-10-10 15:07 | TX PLAN ---
Interdisciplinary Tx Plan Admission Information Oct 06, 2019 at 21:58 Legal Status (on Admission): Voluntary DPOA/Guardian Name: Not Enacted - Brandt Elmore Contact Other Contact Name: [facility] Other Contact Verified Code Status: Full Code Allergies: Coded Allergies: No Known Drug Allergies (Unverified , 10/06/19) Estimated Length of Stay: 10 Diagnoses Primary Diagnosis: MDD Severe Reasons for Admission: Depressed, Suicidal ideation Problem in Patient's Words: Per pt., "I guess cause I said I wanted to ." "They thought I wanted to kill myself." "I just have a big mouth." Problems Active Problems: Per pt. intake, pt. is increasingly depressed, wants it to end but denies SI, crying spells, declining ultrasound, sad about multiple health issues requiring placement, wants to go to sleep and not wake up. Inactive Problems: Pt. is compliant with medication and assessments. Pt Strengths/Limitations Ability for Drew: Poor Cognitive Functioning/Ability: Good Communication Skills/Ability: Good Financial Resources: Fair Insight/Judgement: Fair Intellectual Ability: Good Physical Health: Poor Social Skills: Good Stability in Family: Fair Verbal Skills: Good Discharge Criteria Discharge Criteria: No need for close observ., Adequate arrangements @DC, Improved mood/thought Preliminary Discharge Plan Preliminary DC Plan: Current Living Arrange. Special Precautions Special Precautions: Suicide Risk Fall Risk: High Other Precautions (specify): As noted on intake, pt. has passive thoughts of SI. Initial D/C Plan Pt. will return to [facility] once stable. Identified Discharge Needs: Follow Up with PCP and Psychologist Currently Utilized Resources Currently Utilized Resources/P: Dr. Campos - PCP Dr. Mercer - Psychologist Identified Problems/Hx/Goals Objectives/Short-Term Goals Short Term Goals: Dec. Symp. Depression, Medication Stabilization, Monitor Med Effects, No Suicidal/Beena. 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 Community Follow-up Follow Up with PCP & Psychologist Community Provider/Family Inpu: Pt. is a self sign. Treatment Plan Explained Patient/Allergist/Immunologist Physician had this treatment plan explained to him/her as indicated by the signature below and has been given the opportunity to ask questions and make suggestions: Date: Patient/Allergist/Immunologist Physician Signature: Patient/Allergist/Immunologist Physician Decline: No Additional Comments Pt. will be invited to participate in treatment team. SIOBHAN WHYTE Oct 10, 2019 15:07
[2019-10-10 15:51] VITALS: BP 147/47
[2019-10-10] MEDS: FOLIC/VIT B COMP W-C (RENAL) TABLET. PO SCH (16:48)
[2019-10-10] MEDS: PARoxetine 10 MG TABLET PO SCH (20:19)
[2019-10-10] MEDS: levoFLOXacin 250 MG TABLET PO SCH (20:19)
[2019-10-10] MEDS: NYSTATIN TOPICAL POWDER 15GM BOTTLE. TP PRN (20:21)
--- NOTE | 2019-10-10 21:18 | PDOC ---
Exam Note: Matt Note: Please also refer to the separate dictated note~for this date of service dictated separately.~Patient seen individually. Discussed the patient with Nursing staff reviewed the chart.~Reviewed interim history and current functioning. Reviewed vital signs,~Labs/ Radiology~and current medications noted below. Continue current treatment with the changes noted in the dictated addendum note Assessment: Vital Signs/I&O: Vital Signs Date Time Temp Pulse Resp B/P (MAP) Pulse Ox O2 Delivery O2 Flow Rate FiO2 10/10/19 15:51 97.0 90 18 147/47 (80) 96 10/08/19 16:29 Room Air I & O 10/09/19 10/09/19 10/10/19 15:00 23:00 07:00 Intake Total 840 ml 360 ml 120 ml Balance 840 ml 360 ml 120 ml Current Medications: Meds: Current Medications Medications (Trade) Dose Ordered Sig/Juanpablo Route PRN Reason Start Time Stop Time Status Last Admin Dose Admin Levothyroxine Sodium (Synthroid) 112 mcg DAILY06 PO 10/10/19 06:00 10/10/19 06:00 Paroxetine HCl (Paxil) 5 mg HS PO 10/10/19 21:00 10/15/19 09:00 10/10/19 20:19 Duloxetine HCl (Cymbalta) 30 mg DAILY PO 10/10/19 09:00 10/12/19 21:00 10/10/19 08:36 I have reviewed the current psychotropics carefully including drug interactions. Risk benefit ratio favors no change other than as noted in my dictated progress note. Diagnosis: Problems: (1) Mild cognitive impairment (2) Anxiety disorder (3) Suicidal ideation (4) Major depressive disorder, recurrent episode (5) Impulse control disorder KELLY MARIE MD Oct 10, 2019 21:17
--- NOTE | 2019-10-10 23:43 | NUR ---
This evening pt sat in day room quietly playing games on a tablet. Meds were taken whole without difficulty. Denies Si, no behaviors tonight.
[2019-10-11] MEDS: LEVOTHYROXINE 112 MCG TABLET PO SCH (06:03)
[2019-10-11 06:20] VITALS: BP 138/82
[2019-10-11] MEDS: AMANTADINE HCL 100 MG CAPSULE PO SCH (08:29)
[2019-10-11] MEDS: LACTOBACILLUS RHAMNOSUS GG 1 CAPSULE. PO SCH ×2 (08:29→19:43)
[2019-10-11] MEDS: FAMOTIDINE 20 MG TABLET PO SCH (08:29)
[2019-10-11] MEDS: ASPIRIN ENTERIC COATED 81 MG TABLET.DR. PO SCH (08:29)
[2019-10-11] MEDS: busPIRone 5 MG TABLET. PO SCH ×3 (08:29→19:43)
[2019-10-11] MEDS: PYRIDOXINE 50 MG TABLET. PO SCH (08:29)
[2019-10-11] MEDS: POLYVINYL ALCOHOL 1.4% OPHTH SOLUTION 15ML BOTTLE. OU SCH ×2 (08:29→19:42)
[2019-10-11] MEDS: CHOLECALCIFEROL (VITAMIN D3) 1,000 UNIT TABLET PO SCH (08:30)
[2019-10-11] MEDS: SENNOSIDES/DOCUSATE 8.6/50MG TABLET. PO SCH ×2 (08:30→19:43)
[2019-10-11] MEDS: BACLOFEN 10 MG TABLET PO SCH ×2 (08:30→16:50)
[2019-10-11] MEDS: FOLIC ACID 1 MG TABLET PO SCH (08:30)
[2019-10-11] MEDS: DULoxetine HCL 30 MG CAPSULE.DR PO SCH (08:30)
[2019-10-11] MEDS: CETIRIZINE HCL 10 MG TABLET PO SCH (08:31)
[2019-10-11] MEDS: amLODIPine BESYLATE 5 MG TABLET PO SCH (08:31)
[2019-10-11 09:38] LABS: BASO % 1 % (0-3); EOS # 0.4 x10^3/uL (0.0-0.7); EOS % 6 % (0-3); HEMATOCRIT 41.9 % (36.0-47.0); HEMOGLOBIN 13.5 g/dL (12.0-15.5); LYMPH # 1.4 x10^3/uL (1.0-4.8); LYMPH % 20 % (24-48); MEAN CORPUSCULAR HEMOGLOBIN 28 pg (25-35); MEAN CORPUSCULAR HGB CONC 32 g/dL (31-37); MEAN CORPUSCULAR VOLUME 87 fL (79-100); MONO # 0.3 x10^3/uL (0.0-1.1); MONO % 4 % (0-9); NEUT # 4.8 x10^3uL (1.8-7.7); NEUT % 69 % (31-73); PLATELET COUNT 276 x10^3/uL (140-400); RED BLOOD COUNT 4.82 x10^6/uL (3.50-5.40); RED CELL DISTRIBUTION WIDTH 13.7 % (11.5-14.5); WHITE BLOOD COUNT 6.9 x10^3/uL (4.0-11.0)
[2019-10-11 09:46] LABS: ALBUMIN 3.3 g/dL (3.4-5.0); ALBUMIN/GLOBULIN RATIO 0.9 (1.0-1.7); CALCIUM 9.4 mg/dL (8.5-10.1); CREATININE 1.5 mg/dL (0.6-1.0); GFR 34.4; POTASSIUM 3.5 mmol/L (3.5-5.1); TOTAL BILIRUBIN 0.5 mg/dL (0.2-1.0); TOTAL PROTEIN 6.8 g/dL (6.4-8.2)
--- NOTE | 2019-10-11 10:57 | NUR ---
Nursing Note Pt in the dining room, tearful and verbally expressing her frustrations why she's here, she denies hurting herself states "I am not gonna hurt myself! I just feel like I haven't done anything for the 69 years I'm living..and now I'm here and I live in a prison!" No aggression. No delusions.
[2019-10-11 16:10] VITALS: BP 143/82
[2019-10-11] MEDS: MAGNESIUM HYDROXIDE 2,400 MG/30 ML ORAL.SUSP. PO PRN (16:50)
[2019-10-11] MEDS: FOLIC/VIT B COMP W-C (RENAL) TABLET. PO SCH (16:50)
--- NOTE | 2019-10-11 18:34 | NUR ---
Nursing Note Pt c/o requested medication for constipation. Bowel sounds were hypoactive. MOM given per eMAR.
[2019-10-11] MEDS: PARoxetine 10 MG TABLET PO SCH (19:42)
[2019-10-11] MEDS: levoFLOXacin 250 MG TABLET PO SCH (19:43)
--- NOTE | 2019-10-11 21:28 | PDOC ---
Exam Note: Matt Note: Please also refer to the separate dictated note~for this date of service dictated separately.~Patient seen individually. Discussed the patient with Nursing staff reviewed the chart.~Reviewed interim history and current functioning. Reviewed vital signs,~Labs/ Radiology~and current medications noted below. Continue current treatment with the changes noted in the dictated addendum note Assessment: Vital Signs/I&O: Vital Signs Date Time Temp Pulse Resp B/P (MAP) Pulse Ox O2 Delivery O2 Flow Rate FiO2 10/11/19 16:10 97.4 85 18 143/82 (102) 96 10/08/19 16:29 Room Air I & O 10/10/19 10/10/19 10/11/19 14:59 22:59 06:59 Intake Total 1080 ml 360 ml 240 ml Output Total 400 ml Balance 1080 ml -40 ml 240 ml Labs: Laboratory Tests Test 10/11/19 09:23 White Blood Count 6.9 x10^3/uL (4.0-11.0) Red Blood Count 4.82 x10^6/uL (3.50-5.40) Hemoglobin 13.5 g/dL (12.0-15.5) Hematocrit 41.9 % (36.0-47.0) Mean Corpuscular Volume 87 fL (79-100) Mean Corpuscular Hemoglobin 28 pg (25-35) Mean Corpuscular Hemoglobin Concent 32 g/dL (31-37) Red Cell Distribution Width 13.7 % (11.5-14.5) Platelet Count 276 x10^3/uL (140-400) Neutrophils (%) (Auto) 69 % (31-73) Lymphocytes (%) (Auto) 20 % (24-48) L Monocytes (%) (Auto) 4 % (0-9) Eosinophils (%) (Auto) 6 % (0-3) H Basophils (%) (Auto) 1 % (0-3) Neutrophils # (Auto) 4.8 x10^3uL (1.8-7.7) Lymphocytes # (Auto) 1.4 x10^3/uL (1.0-4.8) Monocytes # (Auto) 0.3 x10^3/uL (0.0-1.1) Eosinophils # (Auto) 0.4 x10^3/uL (0.0-0.7) Basophils # (Auto) 0.0 x10^3/uL (0.0-0.2) Sodium Level 144 mmol/L (136-145) Potassium Level 3.5 mmol/L (3.5-5.1) Chloride Level 106 mmol/L (98-107) Carbon Dioxide Level 29 mmol/L (21-32) Anion Gap 9 (6-14) Blood Urea Nitrogen 25 mg/dL (7-20) H Creatinine 1.5 mg/dL (0.6-1.0) H Estimated GFR (Cockcroft-Gault) 34.4 BUN/Creatinine Ratio 17 (6-20) Glucose Level 130 mg/dL (70-99) H Calcium Level 9.4 mg/dL (8.5-10.1) Total Bilirubin 0.5 mg/dL (0.2-1.0) Aspartate Amino Transferase (AST) 32 U/L (15-37) Alanine Aminotransferase (ALT) 60 U/L (14-59) H Alkaline Phosphatase 106 U/L (46-116) Total Protein 6.8 g/dL (6.4-8.2) Albumin 3.3 g/dL (3.4-5.0) L Albumin/Globulin Ratio 0.9 (1.0-1.7) L Current Medications: I have reviewed the current psychotropics carefully including drug interactions. Risk benefit ratio favors no change other than as noted in my dictated progress note. Diagnosis: Problems: (1) Mild cognitive impairment (2) Anxiety disorder (3) Suicidal ideation (4) Major depressive disorder, recurrent episode (5) Impulse control disorder KELLY MARIE MD Oct 11, 2019 21:28
--- NOTE | 2019-10-12 00:13 | PN ---
DATE: 10/10/2019 PSYCHIATRIC PROGRESS NOTE This late entry 10/10/2019 covers elements not covered in my initial note. SUBJECTIVE: I met with the patient evening of October 09. Per RONNIE Benavides, the patient slept 6 hours previous night. She did well previous evening and during the day on October 09. She remains depressed, anxious, minimizes this, however, and thoroughly denied suicidal ideation. REVIEW OF SYSTEMS: Ambulation impaired, in wheelchair. No CV, , pulmonary, eye system symptoms on review. MENTAL STATUS EXAM: Oriented to herself, situation and generally reasonably oriented. Speech is coherent, has some latency. Abstraction fair, computation impaired, language function intact. Mood and affect still depressed, anxious, but showing improvement. LABORATORY DATA: Reviewed. IMPRESSION: Unchanged from initial note including urinary tract infection; major depressive disorder, severe; anxiety disorder, unspecified. PLAN: Continue psychotropics from initial note. Paxil is being tapered and stopped. She remains on Cymbalta, which is being increased, and BuSpar 5 mg at bedtime. MAN Gaurav MARIE MD DR: JANIYA/rima JOB#: [id number] / [id number]
--- NOTE | 2019-10-12 02:02 | NUR ---
This shift pt has been quiet and cooperative. Last evening she sat in day room watching tv and playing games on a tablet. She was social when engaged took meds whole without difficulty. No behaviors tonight.
[2019-10-12] MEDS: LEVOTHYROXINE 112 MCG TABLET PO SCH (05:45)
[2019-10-12 05:57] VITALS: BP 156/77
[2019-10-12] MEDS: CETIRIZINE HCL 10 MG TABLET PO SCH (09:00)
[2019-10-12] MEDS: GLUCOSAMINE/CHOND 500/400MG CAPSULE PO SCH (09:05)
[2019-10-12] MEDS: FAMOTIDINE 20 MG TABLET PO SCH (09:05)
[2019-10-12] MEDS: IBUPROFEN 400 MG TABLET. PO PRN (09:05)
[2019-10-12] MEDS: CHOLECALCIFEROL (VITAMIN D3) 1,000 UNIT TABLET PO SCH (09:06)
[2019-10-12] MEDS: LACTOBACILLUS RHAMNOSUS GG 1 CAPSULE. PO SCH ×2 (09:06→19:29)
[2019-10-12] MEDS: ASPIRIN ENTERIC COATED 81 MG TABLET.DR. PO SCH (09:06)
[2019-10-12] MEDS: amLODIPine BESYLATE 5 MG TABLET PO SCH (09:06)
[2019-10-12] MEDS: POLYVINYL ALCOHOL 1.4% OPHTH SOLUTION 15ML BOTTLE. OU SCH ×2 (09:06→19:28)
[2019-10-12] MEDS: busPIRone 5 MG TABLET. PO SCH ×3 (09:06→19:28)
[2019-10-12] MEDS: PYRIDOXINE 50 MG TABLET. PO SCH (09:07)
[2019-10-12] MEDS: BACLOFEN 10 MG TABLET PO SCH ×2 (09:07→16:44)
[2019-10-12] MEDS: DULoxetine HCL 30 MG CAPSULE.DR PO SCH (09:07)
[2019-10-12] MEDS: AMANTADINE HCL 100 MG CAPSULE PO SCH (09:07)
[2019-10-12] MEDS: FOLIC ACID 1 MG TABLET PO SCH (09:07)
[2019-10-12] MEDS: SENNOSIDES/DOCUSATE 8.6/50MG TABLET. PO SCH ×2 (09:07→19:29)
--- NOTE | 2019-10-12 14:59 | NUR ---
Nursing note: Pt in day room for morning meds and assessment. She was pleasant, med compliant, and cooperative with assessment. Pt c/o pain in her legs and requested PRN. PRN given per eMAR and pain was much better upon reassessment. Pt appeared to be having a lot of fun participating in this morning's activity group. Pt has remained in the day room for most of the day, playing games on the tablet when not participating in group. Will continue to monitor.
[2019-10-12] MEDS ORDERED: CHOLECALCIFEROL (VITAMIN D3) 50,000 UNIT CAPSULE PO SCH (15:30)
[2019-10-12 15:57] VITALS: BP 125/77
[2019-10-12] MEDS: FOLIC/VIT B COMP W-C (RENAL) TABLET. PO SCH (16:44)
[2019-10-12] MEDS: levoFLOXacin 250 MG TABLET PO SCH (19:28)
[2019-10-12] MEDS: PARoxetine 10 MG TABLET PO SCH (19:29)
--- NOTE | 2019-10-12 21:20 | PDOC ---
Exam Note: Matt Note: Please also refer to the separate dictated note~for this date of service dictated separately.~Patient seen individually. Discussed the patient with Nursing staff reviewed the chart.~Reviewed interim history and current functioning. Reviewed vital signs,~Labs/ Radiology~and current medications noted below. Continue current treatment with the changes noted in the dictated addendum note Assessment: Vital Signs/I&O: Vital Signs Date Time Temp Pulse Resp B/P (MAP) Pulse Ox O2 Delivery O2 Flow Rate FiO2 10/12/19 15:57 97.9 94 18 125/77 (93) 95 10/08/19 16:29 Room Air I & O 10/11/19 10/11/19 10/12/19 15:00 23:00 07:00 Intake Total 960 ml 720 ml Output Total 400 ml Balance 560 ml 720 ml Current Medications: Meds: Current Medications Medications (Trade) Dose Ordered Sig/Juanpablo Route PRN Reason Start Time Stop Time Status Last Admin Dose Admin Glucosamine/ Chondroitin (Glucosamine-Chondroitin 500/400mg) 1 cap DAILY PO 10/12/19 09:00 10/12/19 09:05 I have reviewed the current psychotropics carefully including drug interactions. Risk benefit ratio favors no change other than as noted in my dictated progress note. Diagnosis: Problems: (1) Mild cognitive impairment (2) Depression (3) Anxiety disorder (4) Suicidal ideation (5) Major depressive disorder, recurrent episode (6) Impulse control disorder KELLY MARIE MD Oct 12, 2019 21:20
[2019-10-12] MEDS: HYDROcodone/APAP 5/325MG 1 TAB TABLET PO PRN (21:39)
--- NOTE | 2019-10-12 22:31 | PN ---
DATE: 10/11/2019 PSYCHIATRIC PROGRESS NOTE This late entry 10/11/2019 covers elements not covered in my initial note. SUBJECTIVE: I met with the patient evening of 10/11/2019. Per RONNIE Rizzo, the patient slept 6-1/2 hours previous night. She was tearful in the morning, stating she does not belong here and I processed this with her. She states she is lonely, has no family, medically compromised due to her MS and other health conditions and feels depressed, but denies suicidal ideation. She has no children and able to process this individually. REVIEW OF SYSTEMS: Ambulation impaired, in wheelchair. No CV, , pulmonary, eye system symptoms on review. MENTAL STATUS EXAM: Reasonably oriented. Speech is coherent, has some latency. Abstraction fair, computation impaired, language function intact. Mood and affect still depressed, but better. LABORATORY DATA: Reviewed. IMPRESSION: Unchanged from initial note. PLAN: No change from initial note. KELLY MARIE MD DR: JANIYA/rima JOB#: [id number] / [id number]
--- NOTE | 2019-10-13 00:12 | NUR ---
Last evening pt sat in in day room playing [employer] on a tablet. Meds were taken whole without difficulty. She requested med for constipation and MOM given also reports pain and difficulty sleeping PRN Lortab was given and she is now sleeping. No behaviors tonight. Denies SI.
[2019-10-13 06:08] VITALS: BP 130/77
[2019-10-13] MEDS: POLYVINYL ALCOHOL 1.4% OPHTH SOLUTION 15ML BOTTLE. OU SCH ×2 (09:45→20:11)
[2019-10-13] MEDS: PYRIDOXINE 50 MG TABLET. PO SCH (09:45)
[2019-10-13] MEDS: busPIRone 5 MG TABLET. PO SCH ×3 (09:45→20:11)
[2019-10-13] MEDS: CHOLECALCIFEROL (VITAMIN D3) 50,000 UNIT CAPSULE PO SCH ×2 (09:45→09:50)
[2019-10-13] MEDS: GLUCOSAMINE/CHOND 500/400MG CAPSULE PO SCH (09:45)
[2019-10-13] MEDS: ASPIRIN ENTERIC COATED 81 MG TABLET.DR. PO SCH (09:46)
[2019-10-13] MEDS: IBUPROFEN 400 MG TABLET. PO PRN (09:46)
[2019-10-13] MEDS: FOLIC/VIT B COMP W-C (RENAL) TABLET. PO SCH (09:46)
[2019-10-13] MEDS: LACTOBACILLUS RHAMNOSUS GG 1 CAPSULE. PO SCH ×2 (09:46→20:11)
[2019-10-13] MEDS: FOLIC ACID 1 MG TABLET PO SCH (09:46)
[2019-10-13] MEDS: FAMOTIDINE 20 MG TABLET PO SCH (09:46)
[2019-10-13] MEDS: SENNOSIDES/DOCUSATE 8.6/50MG TABLET. PO SCH ×2 (09:46→20:10)
[2019-10-13] MEDS: LEVOTHYROXINE 112 MCG TABLET PO SCH (09:46)
[2019-10-13] MEDS: AMANTADINE HCL 100 MG CAPSULE PO SCH (09:46)
[2019-10-13] MEDS: BACLOFEN 10 MG TABLET PO SCH ×2 (09:46→17:08)
[2019-10-13] MEDS: CETIRIZINE HCL 10 MG TABLET PO SCH (09:47)
[2019-10-13] MEDS: amLODIPine BESYLATE 5 MG TABLET PO SCH (09:47)
[2019-10-13] MEDS: DULoxetine HCL 60 MG CAPSULE.DR PO SCH (09:47)
--- NOTE | 2019-10-13 10:00 | NUR ---
Nursing note Pt in day room calm, pleasant, med compliant, and cooperative with assessment. Pt in the day room participated in group and currently playing [employer] on a tablet. She denies SI states "I have no thoughts killing myself. I feel a lot better here. Yes I am depressed but I'm fighting it." Pt c/o pain in her legs and requested PRN. PRN given per eMAR.
[2019-10-13] MEDS: HYDROcodone/APAP 5/325MG 1 TAB TABLET PO PRN ×2 (10:39→20:12)
--- NOTE | 2019-10-13 10:50 | NUR ---
Pt. was present for treatment team and reported she is feeling much better. SW contacted KIRA Be at [facility], to discuss pt. progress and tentative discharge scheduled for 10/19/2019.
--- NOTE | 2019-10-13 11:14 | NUR ---
WEEKLY ACTIVITY THERAPY NOTE Date of Admission: 10/06/2019 Date of AT Assessment:10/08/2019 Goal aimed: to increase recreation education and motivation. Initial Goal: Pt will participate in at least five Activity therapy groups per week. Weekly progress towards goal: exceeded, 05/14 Group participation level: 9 full, 1 mod Weekly highlights: Ezequiel Arce on Thursday: giving clues and acting out charades Behaviors observed: calm, polite, engages well in groups, smiling often Plan: change goal to: Pt. will participate in all Activity Therapy groups she is invited to. Beneficial adaptations:
[2019-10-13 16:21] VITALS: BP 123/72
[2019-10-13] MEDS: PARoxetine 10 MG TABLET PO SCH (20:10)
[2019-10-13] MEDS: levoFLOXacin 250 MG TABLET PO SCH (20:10)
--- NOTE | 2019-10-13 21:20 | PDOC ---
Exam Note: Matt Note: Please also refer to the separate dictated note~for this date of service dictated separately.~Patient seen individually. Discussed the patient with Nursing staff reviewed the chart.~Reviewed interim history and current functioning. Reviewed vital signs,~Labs/ Radiology~and current medications noted below. Continue current treatment with the changes noted in the dictated addendum note Assessment: Vital Signs/I&O: Vital Signs Date Time Temp Pulse Resp B/P (MAP) Pulse Ox O2 Delivery O2 Flow Rate FiO2 10/13/19 20:12 18 Room Air 10/13/19 16:21 98.0 81 123/72 (89) 97 I & O 10/12/19 10/12/19 10/13/19 15:00 23:00 07:00 Intake Total 720 ml 360 ml Balance 720 ml 360 ml Current Medications: Meds: Current Medications Medications (Trade) Dose Ordered Sig/Juanpablo Route PRN Reason Start Time Stop Time Status Last Admin Dose Admin Duloxetine HCl (Cymbalta) 60 mg DAILY PO 10/13/19 09:00 10/13/19 09:47 Vitamin D (Vitamin D3) 50,000 unit WEEKLY PO 10/13/19 08:00 10/13/19 09:50 I have reviewed the current psychotropics carefully including drug interactions. Risk benefit ratio favors no change other than as noted in my dictated progress note. Diagnosis: Problems: (1) Mild cognitive impairment (2) Depression (3) Anxiety disorder (4) Suicidal ideation (5) Major depressive disorder, recurrent episode (6) Impulse control disorder KELLY MARIE MD Oct 13, 2019 21:20
--- NOTE | 2019-10-13 23:21 | NUR ---
Nursing Note The patient was located in her room for her assessment and medication pass. The patient was very pleasant and appropriate during her interactions with this nurse. The patient requested and received PRN Lortab with her HS medications. The patient is currently sleeping in her room.
[2019-10-14] MEDS: LEVOTHYROXINE 112 MCG TABLET PO SCH (06:00)
[2019-10-14] MEDS: POLYVINYL ALCOHOL 1.4% OPHTH SOLUTION 15ML BOTTLE. OU SCH ×2 (06:00→19:50)
[2019-10-14 06:40] VITALS: BP 132/76
[2019-10-14] MEDS: LACTOBACILLUS RHAMNOSUS GG 1 CAPSULE. PO SCH ×2 (08:42→19:50)
[2019-10-14] MEDS: DULoxetine HCL 60 MG CAPSULE.DR PO SCH (08:42)
[2019-10-14] MEDS: SENNOSIDES/DOCUSATE 8.6/50MG TABLET. PO SCH ×2 (08:42→19:49)
[2019-10-14] MEDS: GLUCOSAMINE/CHOND 500/400MG CAPSULE PO SCH (08:42)
[2019-10-14] MEDS: busPIRone 5 MG TABLET. PO SCH ×3 (08:42→19:50)
[2019-10-14] MEDS: FOLIC ACID 1 MG TABLET PO SCH (08:42)
[2019-10-14] MEDS: CETIRIZINE HCL 10 MG TABLET PO SCH (08:42)
[2019-10-14] MEDS: BACLOFEN 10 MG TABLET PO SCH ×2 (08:42→17:36)
[2019-10-14] MEDS: ASPIRIN ENTERIC COATED 81 MG TABLET.DR. PO SCH (08:42)
[2019-10-14] MEDS: amLODIPine BESYLATE 5 MG TABLET PO SCH (08:43)
[2019-10-14] MEDS: FAMOTIDINE 20 MG TABLET PO SCH (08:43)
[2019-10-14] MEDS: PYRIDOXINE 50 MG TABLET. PO SCH (08:43)
[2019-10-14] MEDS: AMANTADINE HCL 100 MG CAPSULE PO SCH (08:43)
[2019-10-14] MEDS: HYDROcodone/APAP 5/325MG 1 TAB TABLET PO PRN (08:49)
--- NOTE | 2019-10-14 10:21 | NUR ---
Pt located in the dining room for med pass. Pt calm, pleasant and cooperative. Compliant with medications and morning shower. PRN Lortab administered per pt request. Pt interactive and participated in morning group. Diego HOLGUIN.
--- NOTE | 2019-10-14 11:42 | NUR ---
New 16F vazquez catheter placed d/t leaking. Pt tolerated well.
[2019-10-14] MEDS: IBUPROFEN 400 MG TABLET. PO PRN (12:55)
[2019-10-14 15:37] VITALS: BP 119/73
[2019-10-14] MEDS: FOLIC/VIT B COMP W-C (RENAL) TABLET. PO SCH (17:37)
[2019-10-14] MEDS: PARoxetine 10 MG TABLET PO SCH (19:50)
--- NOTE | 2019-10-14 19:53 | PN ---
DATE: 10/12/2019 PSYCHIATRIC PROGRESS NOTE This late entry October 11, covers elements not covered in my initial note. SUBJECTIVE: I met with the patient evening of October 11. Per Stacy with [facility], the patient slept 7 hours previous night. She has been cooperative, still depressed, but minimizes this. She denies suicidal ideation. REVIEW OF SYSTEMS: Ambulation impaired, in wheelchair. No CV, , pulmonary, eye system symptoms on review. MENTAL STATUS EXAM: Reasonably oriented. Speech is coherent, abstraction fair, computation impaired, language function intact, attention span short. Mood and affect at times, dysphoric, but she tries to cover this up somewhat anxious. LABORATORY DATA: Reviewed. IMPRESSION: Major depressive disorder in partial remission. Rest unchanged. PLAN: Continue psychotropics from initial note. Gradually increase the Cymbalta in place of the Paxil and maintain the BuSpar. MAN Gaurav MARIE MD DR: JANIYA/rima JOB#: [id number] / [id number]
--- NOTE | 2019-10-14 19:54 | PN ---
DATE: 10/13/2019 PSYCHIATRIC PROGRESS NOTE This late entry 10/13/2019 covers the elements not covered in my initial note. SUBJECTIVE: I met with the patient in the evening of 10/13/2019 and staffed at a treatment team meeting with the entire team in the morning. The patient attended the treatment team meeting. Lengthy discussion about her progress, attempts to cover up her depressive symptoms, need to express feelings openly. She remains somewhat anxious, had a dry mouth. By the end of the meeting quite hyperverbal during the meeting. Sleeping average 6-1/2 hours. Appetite is 70%. REVIEW OF SYSTEMS: Ambulation impaired, in wheelchair. No CV, , pulmonary, eye system symptoms on review. MENTAL STATUS EXAM: The patient is reasonably oriented. Speech is coherent, rapid at times. Abstraction fair, computation impaired, language function intact. Mood and affect, somewhat anxious, depressed, minimizes this. LABORATORY DATA: Reviewed. IMPRESSION: Unchanged from initial note. PLAN: No change from initial note. KELLY MARIE MD DR: JANIYA/rima JOB#: [id number] / [id number]
[2019-10-14] MEDS: levoFLOXacin 250 MG TABLET PO SCH (19:57)
--- NOTE | 2019-10-14 21:23 | PDOC ---
Exam Note: Matt Note: Please also refer to the separate dictated note~for this date of service dictated separately.~Patient seen individually. Discussed the patient with Nursing staff reviewed the chart.~Reviewed interim history and current functioning. Reviewed vital signs,~Labs/ Radiology~and current medications noted below. Continue current treatment with the changes noted in the dictated addendum note Assessment: Vital Signs/I&O: Vital Signs Date Time Temp Pulse Resp B/P (MAP) Pulse Ox O2 Delivery O2 Flow Rate FiO2 10/14/19 15:37 98.0 92 20 119/73 (88) 97 10/13/19 21:12 Room Air I & O 10/13/19 10/13/19 10/14/19 15:00 23:00 07:00 Intake Total 480 ml 600 ml 240 ml Balance 480 ml 600 ml 240 ml Current Medications: I have reviewed the current psychotropics carefully including drug interactions. Risk benefit ratio favors no change other than as noted in my dictated progress note. Diagnosis: Problems: (1) Mild cognitive impairment (2) Depression (3) Anxiety disorder (4) Suicidal ideation (5) Major depressive disorder, recurrent episode (6) Impulse control disorder KELLY MARIE MD Oct 14, 2019 21:23
[2019-10-14] MEDS: POLYETHYLENE GLYCOL 3350 17 GM PACKET. PO PRN (23:11)
--- NOTE | 2019-10-15 00:02 | NUR ---
Nursing Note The Patient was located in the day room for her assessment and medication pass. The patient was calm and compliant with her medication and assessment. The patient took her medication whole. The patient was very pleasant and appropriate during interactions with this nurse. The patient received PRN Miralax @HS due to last reported BM on 10/10/19. The patient is currently sleeping in her room. The patient had a small amount of urine in her brief when changed @HS.
[2019-10-15] MEDS: LEVOTHYROXINE 112 MCG TABLET PO SCH (06:23)
[2019-10-15 06:34] VITALS: BP 128/73
[2019-10-15] MEDS: POLYVINYL ALCOHOL 1.4% OPHTH SOLUTION 15ML BOTTLE. OU SCH ×2 (08:08→22:14)
[2019-10-15] MEDS: ASPIRIN ENTERIC COATED 81 MG TABLET.DR. PO SCH (08:10)
[2019-10-15] MEDS: DULoxetine HCL 60 MG CAPSULE.DR PO SCH (08:10)
[2019-10-15] MEDS: CETIRIZINE HCL 10 MG TABLET PO SCH (08:10)
[2019-10-15] MEDS: busPIRone 5 MG TABLET. PO SCH ×3 (08:10→19:46)
[2019-10-15] MEDS: LACTOBACILLUS RHAMNOSUS GG 1 CAPSULE. PO SCH ×2 (08:10→19:46)
[2019-10-15] MEDS: BACLOFEN 10 MG TABLET PO SCH ×2 (08:11→17:07)
[2019-10-15] MEDS: amLODIPine BESYLATE 5 MG TABLET PO SCH (08:11)
[2019-10-15] MEDS: FAMOTIDINE 20 MG TABLET PO SCH (08:11)
[2019-10-15] MEDS: FOLIC ACID 1 MG TABLET PO SCH (08:11)
[2019-10-15] MEDS: GLUCOSAMINE/CHOND 500/400MG CAPSULE PO SCH (08:11)
[2019-10-15] MEDS: SENNOSIDES/DOCUSATE 8.6/50MG TABLET. PO SCH ×2 (08:12→19:47)
[2019-10-15] MEDS: AMANTADINE HCL 100 MG CAPSULE PO SCH (08:12)
[2019-10-15] MEDS: PYRIDOXINE 50 MG TABLET. PO SCH (09:15)
--- NOTE | 2019-10-15 09:44 | NUR ---
Pt is calm, cooperative, compliant. No agitation, no aggression, no hallucinations, no delusions. She is compliant with her medication and assessment. Denies SI/HI.
[2019-10-15 15:53] VITALS: BP 134/73
[2019-10-15] MEDS: FOLIC/VIT B COMP W-C (RENAL) TABLET. PO SCH (17:07)
[2019-10-15] MEDS: HYDROcodone/APAP 5/325MG 1 TAB TABLET PO PRN (18:52)
[2019-10-15] MEDS: levoFLOXacin 250 MG TABLET PO SCH (19:47)
--- NOTE | 2019-10-15 21:15 | PDOC ---
Exam Note: Matt Note: Please also refer to the separate dictated note~for this date of service dictated separately.~Patient seen individually. Discussed the patient with Nursing staff reviewed the chart.~Reviewed interim history and current functioning. Reviewed vital signs,~Labs/ Radiology~and current medications noted below. Continue current treatment with the changes noted in the dictated addendum note Assessment: Vital Signs/I&O: Vital Signs Date Time Temp Pulse Resp B/P (MAP) Pulse Ox O2 Delivery O2 Flow Rate FiO2 10/15/19 18:52 18 Room Air 10/15/19 15:53 98.2 100 134/73 (93) 98 I & O 10/14/19 10/14/19 10/15/19 15:00 23:00 07:00 Intake Total 600 ml 240 ml 240 ml Balance 600 ml 240 ml 240 ml Current Medications: I have reviewed the current psychotropics carefully including drug interactions. Risk benefit ratio favors no change other than as noted in my dictated progress note. Diagnosis: Problems: (1) Mild cognitive impairment (2) Depression (3) Anxiety disorder (4) Suicidal ideation (5) Major depressive disorder, recurrent episode (6) Impulse control disorder KELLY MARIE MD Oct 15, 2019 21:15
[2019-10-15] MEDS: POLYETHYLENE GLYCOL 3350 17 GM PACKET. PO PRN (22:08)
--- NOTE | 2019-10-16 03:18 | NUR ---
Nursing Note The patient received PRN Lortab @ Shift change for leg pain. The patient requested PRN miralax@ HS for constipation. The patient was calm and compliant this shift and is currently sleeping in her room.
[2019-10-16] MEDS: LEVOTHYROXINE 112 MCG TABLET PO SCH (05:53)
[2019-10-16] MEDS: MAGNESIUM HYDROXIDE 2,400 MG/30 ML ORAL.SUSP. PO PRN (05:53)
[2019-10-16 06:21] VITALS: BP 122/71
[2019-10-16 07:47] LABS: BASO # 0.1 x10^3/uL (0.0-0.2); BASO % 1 % (0-3); EOS # 0.4 x10^3/uL (0.0-0.7); EOS % 7 % (0-3); HEMATOCRIT 37.5 % (36.0-47.0); HEMOGLOBIN 12.1 g/dL (12.0-15.5); LYMPH # 1.3 x10^3/uL (1.0-4.8); LYMPH % 23 % (24-48); MEAN CORPUSCULAR HEMOGLOBIN 28 pg (25-35); MEAN CORPUSCULAR HGB CONC 32 g/dL (31-37); MEAN CORPUSCULAR VOLUME 87 fL (79-100); MONO # 0.4 x10^3/uL (0.0-1.1); MONO % 7 % (0-9); NEUT # 3.5 x10^3uL (1.8-7.7); NEUT % 62 % (31-73); PLATELET COUNT 228 x10^3/uL (140-400); RED BLOOD COUNT 4.29 x10^6/uL (3.50-5.40); WHITE BLOOD COUNT 5.7 x10^3/uL (4.0-11.0)
[2019-10-16 07:52] LABS: CALCIUM 8.7 mg/dL (8.5-10.1); CREATININE 1.7 mg/dL (0.6-1.0); GFR 29.8; POTASSIUM 3.9 mmol/L (3.5-5.1); TOTAL BILIRUBIN 0.4 mg/dL (0.2-1.0); TOTAL PROTEIN 6.1 g/dL (6.4-8.2)
[2019-10-16] MEDS: ASPIRIN ENTERIC COATED 81 MG TABLET.DR. PO SCH (08:08)
[2019-10-16] MEDS: busPIRone 5 MG TABLET. PO SCH ×3 (08:08→19:54)
[2019-10-16] MEDS: LACTOBACILLUS RHAMNOSUS GG 1 CAPSULE. PO SCH ×2 (08:08→19:54)
[2019-10-16] MEDS: amLODIPine BESYLATE 5 MG TABLET PO SCH (08:09)
[2019-10-16] MEDS: FOLIC ACID 1 MG TABLET PO SCH (08:09)
[2019-10-16] MEDS: DULoxetine HCL 60 MG CAPSULE.DR PO SCH (08:09)
[2019-10-16] MEDS: FAMOTIDINE 20 MG TABLET PO SCH (08:09)
[2019-10-16] MEDS: GLUCOSAMINE/CHOND 500/400MG CAPSULE PO SCH (08:09)
[2019-10-16] MEDS: BACLOFEN 10 MG TABLET PO SCH ×2 (08:09→17:10)
[2019-10-16] MEDS: SENNOSIDES/DOCUSATE 8.6/50MG TABLET. PO SCH ×2 (08:10→19:55)
[2019-10-16] MEDS: PYRIDOXINE 50 MG TABLET. PO SCH (08:10)
[2019-10-16] MEDS: AMANTADINE HCL 100 MG CAPSULE PO SCH (08:10)
[2019-10-16] MEDS: CETIRIZINE HCL 10 MG TABLET PO SCH (08:10)
[2019-10-16] MEDS: POLYVINYL ALCOHOL 1.4% OPHTH SOLUTION 15ML BOTTLE. OU SCH ×2 (09:00→19:54)
[2019-10-16] MEDS ORDERED: INTERFERON BETA 30 MCG IM SCH (09:00)
--- NOTE | 2019-10-16 09:01 | NUR ---
She is compliant with her medication and assessment. Denies SI/HI. Pt is calm, cooperative, compliant. No agitation, no aggression, no hallucinations, no delusions.
[2019-10-16] MEDS: INTERFERON BETA 30 MCG IM SCH (10:25)
[2019-10-16] MEDS: HYDROcodone/APAP 5/325MG 1 TAB TABLET PO PRN ×2 (14:20→19:55)
[2019-10-16] MEDS: IBUPROFEN 400 MG TABLET. PO PRN (14:20)
[2019-10-16 15:30] VITALS: BP 136/81
[2019-10-16] MEDS: FOLIC/VIT B COMP W-C (RENAL) TABLET. PO SCH (17:10)
--- NOTE | 2019-10-16 20:52 | NUR ---
Patient is in the day room on assumption of care. She is playing a game on the [employer] and watching television. Interactive and appropriate with peers and staff. Calm, cooperative and compliant with medications and assessments. She complained of 8/10 bilateral spastic leg pain. PRN Lortab given to her with her HS meds, with good effect. No agitation. Denies any further pain or discomfort. Denies SI.
--- NOTE | 2019-10-16 21:59 | PN ---
DATE: 10/14/2019 PSYCHIATRIC PROGRESS NOTE This late entry, 10/13, covers elements not covered in my initial note. SUBJECTIVE: I met with the patient evening of 10/13. Per RONNIE Haji, the patient slept 8-1/2 hours previous night. She has been compliant with the medications, does complain of leg pain, remains in a wheelchair. REVIEW OF SYSTEMS: No CV, , pulmonary, eye system symptoms on review. MENTAL STATUS EXAM: Reasonably oriented. Speech coherent, abstraction fair, computation impaired, language function intact. Mood and affect still somewhat anxious, dysphoric at times, but improved. No suicidal ideation. LABORATORY DATA: Reviewed. IMPRESSION: Unchanged from initial note. PLAN: No change from initial note. MAN Gaurav MARIE MD DR: JANIYA/rima JOB#: [id number] / [id number]
--- NOTE | 2019-10-16 21:59 | PN ---
DATE: 10/15/2019 PSYCHIATRIC PROGRESS NOTE This late entry 10/15/2019 covers the elements not covered in my initial note. SUBJECTIVE: I met with the patient in the evening of 10/15/2019. Per RONNIE Osborn, the patient slept 6 hours previous night. She has been cooperative, more verbal, interactive. Denies suicidal ideation. Mood is better. REVIEW OF SYSTEMS: Ambulation impaired, in wheelchair. No CV, , pulmonary, eye system symptoms on review. She was very verbal, interactive, animated as I met with her. MENTAL STATUS EXAM: Reasonably oriented. Speech coherent, rapid. Abstraction fair, computation somewhat impaired, language function intact, attention span fair. Mood and affect is improved. LABORATORY DATA: Reviewed. IMPRESSION: Major depressive disorder, recurrent, in partial remission. Rest unchanged. PLAN: Continue current psychotropics. The patient would benefit from psychotherapy when she is back at the assisted and she requested this as well appropriately so. We will leave this as part of discharge instructions and informed Anurag about this. KELLY MARIE MD DR: JANIYA/rima JOB#: [id number] / [id number]
--- NOTE | 2019-10-16 22:35 | PDOC ---
Exam Note: Matt Note: Please also refer to the separate dictated note~for this date of service dictated separately.~Patient seen individually. Discussed the patient with Nursing staff reviewed the chart.~Reviewed interim history and current functioning. Reviewed vital signs,~Labs/ Radiology~and current medications noted below. Continue current treatment with the changes noted in the dictated addendum note Assessment: Vital Signs/I&O: Vital Signs Date Time Temp Pulse Resp B/P (MAP) Pulse Ox O2 Delivery O2 Flow Rate FiO2 10/16/19 15:30 98.0 110 20 136/81 (99) 97 10/15/19 19:52 Room Air I & O 10/15/19 10/15/19 10/16/19 15:00 23:00 07:00 Intake Total 240 ml 360 ml 240 ml Output Total 900 ml Balance 240 ml 360 ml -660 ml Labs: Laboratory Tests Test 10/16/19 07:00 White Blood Count 5.7 x10^3/uL (4.0-11.0) Red Blood Count 4.29 x10^6/uL (3.50-5.40) Hemoglobin 12.1 g/dL (12.0-15.5) Hematocrit 37.5 % (36.0-47.0) Mean Corpuscular Volume 87 fL (79-100) Mean Corpuscular Hemoglobin 28 pg (25-35) Mean Corpuscular Hemoglobin Concent 32 g/dL (31-37) Red Cell Distribution Width 14.0 % (11.5-14.5) Platelet Count 228 x10^3/uL (140-400) Neutrophils (%) (Auto) 62 % (31-73) Lymphocytes (%) (Auto) 23 % (24-48) L Monocytes (%) (Auto) 7 % (0-9) Eosinophils (%) (Auto) 7 % (0-3) H Basophils (%) (Auto) 1 % (0-3) Neutrophils # (Auto) 3.5 x10^3uL (1.8-7.7) Lymphocytes # (Auto) 1.3 x10^3/uL (1.0-4.8) Monocytes # (Auto) 0.4 x10^3/uL (0.0-1.1) Eosinophils # (Auto) 0.4 x10^3/uL (0.0-0.7) Basophils # (Auto) 0.1 x10^3/uL (0.0-0.2) Sodium Level 144 mmol/L (136-145) Potassium Level 3.9 mmol/L (3.5-5.1) Chloride Level 107 mmol/L (98-107) Carbon Dioxide Level 28 mmol/L (21-32) Anion Gap 9 (6-14) Blood Urea Nitrogen 25 mg/dL (7-20) H Creatinine 1.7 mg/dL (0.6-1.0) H Estimated GFR (Cockcroft-Gault) 29.8 BUN/Creatinine Ratio 15 (6-20) Glucose Level 90 mg/dL (70-99) Calcium Level 8.7 mg/dL (8.5-10.1) Total Bilirubin 0.4 mg/dL (0.2-1.0) Aspartate Amino Transferase (AST) 29 U/L (15-37) Alanine Aminotransferase (ALT) 47 U/L (14-59) Alkaline Phosphatase 85 U/L (46-116) Total Protein 6.1 g/dL (6.4-8.2) L Albumin 3.0 g/dL (3.4-5.0) L Albumin/Globulin Ratio 1.0 (1.0-1.7) Current Medications: I have reviewed the current psychotropics carefully including drug interactions. Risk benefit ratio favors no change other than as noted in my dictated progress note. Diagnosis: Problems: (1) Mild cognitive impairment (2) Anxiety disorder (3) Suicidal ideation (4) Major depressive disorder, recurrent episode (5) Impulse control disorder KELLY MARIE MD Oct 16, 2019 22:35
[2019-10-17] MEDS: LEVOTHYROXINE 112 MCG TABLET PO SCH (05:38)
[2019-10-17 06:19] VITALS: BP 135/80
[2019-10-17] MEDS: FOLIC ACID 1 MG TABLET PO SCH (08:28)
[2019-10-17] MEDS: LACTOBACILLUS RHAMNOSUS GG 1 CAPSULE. PO SCH ×2 (08:28→20:33)
[2019-10-17] MEDS: ASPIRIN ENTERIC COATED 81 MG TABLET.DR. PO SCH (08:28)
[2019-10-17] MEDS: DULoxetine HCL 60 MG CAPSULE.DR PO SCH (08:28)
[2019-10-17] MEDS: busPIRone 5 MG TABLET. PO SCH ×3 (08:28→20:33)
[2019-10-17] MEDS: amLODIPine BESYLATE 5 MG TABLET PO SCH (08:29)
[2019-10-17] MEDS: BACLOFEN 10 MG TABLET PO SCH ×4 (08:29→20:33)
[2019-10-17] MEDS: SENNOSIDES/DOCUSATE 8.6/50MG TABLET. PO SCH ×2 (08:29→20:33)
[2019-10-17] MEDS: GLUCOSAMINE/CHOND 500/400MG CAPSULE PO SCH (08:29)
[2019-10-17] MEDS: FAMOTIDINE 20 MG TABLET PO SCH (08:29)
[2019-10-17] MEDS: AMANTADINE HCL 100 MG CAPSULE PO SCH (08:30)
[2019-10-17] MEDS: CETIRIZINE HCL 10 MG TABLET PO SCH (08:30)
[2019-10-17] MEDS: PYRIDOXINE 50 MG TABLET. PO SCH (08:30)
[2019-10-17] MEDS: POLYVINYL ALCOHOL 1.4% OPHTH SOLUTION 15ML BOTTLE. OU SCH ×2 (09:00→20:33)
--- NOTE | 2019-10-17 10:07 | NUR ---
Denies SI/HI. Pt is calm, cooperative, compliant. She is compliant with her medication and assessment. No agitation, no aggression, no hallucinations, no delusions.
--- NOTE | 2019-10-17 10:34 | NUR ---
SW received permission from pt. to speak to her father, Silverio Elmore, who had called earlier in the day. SW call Silverio back to answer a few questions such as tentative discharge, how pt. is doing, and how much pt. has been eating. Silverio Elmore [phone]
--- NOTE | 2019-10-17 13:45 | NUR ---
KIRA met with pt. to create a safety plan for pt. discharge. KIRA will place one copy in pt. file and send a copy in pt. discharge folder.
[2019-10-17] MEDS: FOLIC/VIT B COMP W-C (RENAL) TABLET. PO SCH (14:54)
[2019-10-17 16:11] VITALS: BP 159/72
[2019-10-17] MEDS ORDERED: HYOSCYAMINE 0.125 MG TAB.RAPDIS PO PRN (16:30)
[2019-10-17] MEDS: HYDROcodone/APAP 5/325MG 1 TAB TABLET PO PRN (20:32)
--- NOTE | 2019-10-17 20:33 | PN ---
DATE: 10/16/2019 PSYCHIATRIC PROGRESS NOTE This late entry 10/16/2019 covers the elements not covered in my initial note. SUBJECTIVE: I met with the patient in the evening of 10/16/2019. The patient slept for 3-1/4 hours previous night per RONNIE Andersen. She has been playing music on her [employer] and social. REVIEW OF SYSTEMS: Ambulation impaired, in wheelchair, complains of leg pain, received hydrocodone per Dr. Christina. No CV, , pulmonary, eye system symptoms on review. MENTAL STATUS EXAM: Oriented reasonably. Speech is coherent, abstraction fair, computation impaired, language function intact. Mood and affect is improved. LABORATORY DATA: Reviewed. IMPRESSION: Major depressive disorder in partial remission; anxiety disorder, unspecified. PLAN: Paxil is being tapered and stopped. She is on Cymbalta, increasing to 60 mg a day. Maintain this along with BuSpar 5 mg t.i.d. Adjust further as clinically indicated. KELLY MARIE MD DR: JANIYA/rima JOB#: [id number] / [id number]
--- NOTE | 2019-10-17 21:42 | PDOC ---
Exam Note: Matt Note: Please also refer to the separate dictated note~for this date of service dictated separately.~Patient seen individually. Discussed the patient with Nursing staff reviewed the chart.~Reviewed interim history and current functioning. Reviewed vital signs,~Labs/ Radiology~and current medications noted below. Continue current treatment with the changes noted in the dictated addendum note Assessment: Vital Signs/I&O: Vital Signs Date Time Temp Pulse Resp B/P (MAP) Pulse Ox O2 Delivery O2 Flow Rate FiO2 10/17/19 20:32 96 10/17/19 16:11 98.0 93 20 159/72 (101) 10/15/19 19:52 Room Air I & O 10/16/19 10/16/19 10/17/19 15:00 23:00 07:00 Intake Total 840 ml 360 ml 100 ml Balance 840 ml 360 ml 100 ml Current Medications: Meds: Current Medications Medications (Trade) Dose Ordered Sig/Juanpablo Route PRN Reason Start Time Stop Time Status Last Admin Dose Admin Baclofen (Lioresal) 10 mg TID PO 10/17/19 17:00 10/17/19 20:33 Hyoscyamine (Anaspaz) 0.125 mg PRN Q4HRS PRN PO STOMACH CRAMPING 10/17/19 16:30 10/17/19 17:11 I have reviewed the current psychotropics carefully including drug interactions. Risk benefit ratio favors no change other than as noted in my dictated progress note. Diagnosis: Problems: (1) Mild cognitive impairment (2) Anxiety disorder (3) Suicidal ideation (4) Major depressive disorder, recurrent episode (5) Impulse control disorder KELLY MARIE MD Oct 17, 2019 21:42
[2019-10-17 22:11] LABS: BILIRUBIN,URINE NEG (NEG); CLARITY,URINE CLOUDY; COLOR,URINE YELLOW; GLUCOSE,URINE NEG (NEG); NITRITE,URINE POS (NEG); UROBILINOGEN,URINE 0.2 mg/dL (0.2 mg/dL); WBC,URINE >40 /HPF (0-4)
[2019-10-17 22:12] LABS: BACTERIA,URINE FEW /HPF (0-FEW); SQUAMOUS EPITHELIAL CELL,UR MANY /LPF
--- NOTE | 2019-10-17 23:08 | NUR ---
Nursing Note Pt talks about living in a group home and how she needs to "Get the fuck out of that place, because I want to get laid. I don't plan to stay there, for long I want out as soon as possible, I can take care of myself!!" I said back to her "Oh, really, ok good plan...." Then offered her meds with lortab for pain. Pt pleasant smiles on approach compliant and cooperative with assessment and meds.
[2019-10-18 06:23] VITALS: BP 105/65
[2019-10-18] MEDS: LEVOTHYROXINE 112 MCG TABLET PO SCH (08:15)
[2019-10-18] MEDS: LACTOBACILLUS RHAMNOSUS GG 1 CAPSULE. PO SCH ×2 (08:15→21:28)
[2019-10-18] MEDS: ASPIRIN ENTERIC COATED 81 MG TABLET.DR. PO SCH (08:15)
[2019-10-18] MEDS: GLUCOSAMINE/CHOND 500/400MG CAPSULE PO SCH (08:15)
[2019-10-18] MEDS: busPIRone 5 MG TABLET. PO SCH ×3 (08:15→21:28)
[2019-10-18] MEDS: FOLIC ACID 1 MG TABLET PO SCH (08:15)
[2019-10-18] MEDS: DULoxetine HCL 60 MG CAPSULE.DR PO SCH (08:15)
[2019-10-18] MEDS: SENNOSIDES/DOCUSATE 8.6/50MG TABLET. PO SCH ×2 (08:15→21:28)
[2019-10-18] MEDS: CETIRIZINE HCL 10 MG TABLET PO SCH (08:16)
[2019-10-18] MEDS: BACLOFEN 10 MG TABLET PO SCH ×3 (08:16→21:28)
[2019-10-18] MEDS: amLODIPine BESYLATE 5 MG TABLET PO SCH (08:16)
[2019-10-18] MEDS: FOLIC/VIT B COMP W-C (RENAL) TABLET. PO SCH (08:17)
[2019-10-18] MEDS: POLYVINYL ALCOHOL 1.4% OPHTH SOLUTION 15ML BOTTLE. OU SCH ×2 (08:17→21:29)
[2019-10-18] MEDS: FAMOTIDINE 20 MG TABLET PO SCH (08:17)
[2019-10-18] MEDS: AMANTADINE HCL 100 MG CAPSULE PO SCH (08:17)
[2019-10-18] MEDS: PYRIDOXINE 50 MG TABLET. PO SCH (08:17)
--- NOTE | 2019-10-18 10:47 | NUR ---
[facility] Social Work Discharge Planning Form Patient Name MELINA ROWELL Admit Date: 10/06/2019 DISCHARGE PLAN Discharge Destination: [facility] Care Assessment: NA Level II Assessment: NA Transportation: [facility] to set up transport for 10/19/2019 pickup TBD. Special Instructions/Notes: Please fax discharge paperwork and medication list. DISCHARGE TO FACILITY Facility: [facility] Address: [address] [place] [address] Contact Name: KIRA Be PCP: Dr. Campos Psychiatrist: None
[2019-10-18] MEDS: IBUPROFEN 400 MG TABLET. PO PRN (15:00)
--- NOTE | 2019-10-18 15:07 | NUR ---
Nursing Note Pt denies SI, calm, and complaint with meds and assessments. Pt expressed her excitement states " I have no complains aside from leg pain. I am glad I am discharging tomorrow." Pt c/o leg pain, requested Ibuprofen. PRN administered per eMAR. Pt in the day room participating in groups and interacting w peers and staffs.
[2019-10-18] MEDS ORDERED: DULO60CA6 PO (15:30)
[2019-10-18] MEDS ORDERED: FOLI0.4T2 PO (15:38)
[2019-10-18] MEDS ORDERED: GLUC-11 PO (15:39)
[2019-10-18] MEDS ORDERED: HYDR-2155 PO (15:41)
[2019-10-18] MEDS ORDERED: HYOS0.1222 PO (15:43)
[2019-10-18] MEDS ORDERED: LACT1CAP19 PO (15:44)
[2019-10-18] MEDS ORDERED: LEVO112T4 PO (15:45)
[2019-10-18] MEDS ORDERED: MAGN30OR PO (15:46)
[2019-10-18] MEDS ORDERED: METH57CR17 TP (15:47)
[2019-10-18] MEDS ORDERED: MAGN24003 PO (15:47)
[2019-10-18] MEDS ORDERED: BUSP5TAB PO (15:49)
[2019-10-18 16:04] VITALS: BP 149/87
--- NOTE | 2019-10-18 19:36 | PN ---
DATE: 10/17/2019 PSYCHIATRIC PROGRESS NOTE This late entry 10/17/2019 covers elements not covered in my initial note. SUBJECTIVE: I met with the patient evening of 10/17/2019. Per RONNIE Benavides, the patient slept 7-3/4 hours previous night. She has done better during the day and last night. The catheter was leaking, defer to Dr. Christina. Baclofen was increased for muscle rigidity. REVIEW OF SYSTEMS: Ambulation impaired, in wheelchair. No CV, , pulmonary, eye system symptoms on review. MENTAL STATUS EXAM: Reasonably oriented. Speech is coherent, abstraction fair, computation impaired, language function intact, attention span short. Mood and affect remains somewhat dysphoric at times, anxious, but improved overall. LABORATORY DATA: Reviewed. IMPRESSION: Unchanged from initial note. PLAN: No change from initial note. MAN Gaurav MARIE MD DR: JANIYA/rima JOB#: [id number] / [id number]
--- NOTE | 2019-10-18 21:39 | PDOC ---
Exam Note: Matt Note: Please also refer to the separate dictated note~for this date of service dictated separately.~Patient seen individually. Discussed the patient with Nursing staff reviewed the chart.~Reviewed interim history and current functioning. Reviewed vital signs,~Labs/ Radiology~and current medications noted below. Continue current treatment with the changes noted in the dictated addendum note Assessment: Vital Signs/I&O: Vital Signs Date Time Temp Pulse Resp B/P (MAP) Pulse Ox O2 Delivery O2 Flow Rate FiO2 10/18/19 16:04 97.0 94 16 149/87 (107) 96 10/15/19 19:52 Room Air I & O 10/17/19 10/17/19 10/18/19 15:00 23:00 07:00 Intake Total 840 ml 480 ml Balance 840 ml 480 ml Labs: Laboratory Tests Test 10/17/19 21:45 Urine Collection Type Unknown Urine Color Yellow Urine Clarity Cloudy Urine pH 7.0 Urine Specific [place] 1.020 Urine Protein Neg (NEG-TRACE) Urine Glucose (UA) Neg mg/dL (NEG) Urine Ketones (Stick) Neg mg/dL (NEG) Urine Blood Small (NEG) Urine Nitrite Pos (NEG) Urine Bilirubin Neg (NEG) Urine Urobilinogen Dipstick 0.2 mg/dL (0.2 mg/dL) Urine Leukocyte Esterase Mod (NEG) Urine RBC 6-10 /HPF (0-2) Urine WBC >40 /HPF (0-4) Urine Squamous Epithelial Cells Many /LPF Urine Bacteria Few /HPF (0-FEW) Current Medications: I have reviewed the current psychotropics carefully including drug interactions. Risk benefit ratio favors no change other than as noted in my dictated progress note. Diagnosis: Problems: (1) Mild cognitive impairment (2) Anxiety disorder (3) Suicidal ideation (4) Major depressive disorder, recurrent episode (5) Impulse control disorder KELLY MARIE MD Oct 18, 2019 21:39
--- NOTE | 2019-10-18 22:14 | NUR ---
Nursing Note Pt pleasant and calm, groggy this pm. Cooperative with meds and assessments.
[2019-10-19] MEDS: LEVOTHYROXINE 112 MCG TABLET PO SCH (05:44)
[2019-10-19 06:22] VITALS: BP 135/72
[2019-10-19 08:07] VITALS: BP 135/72
[2019-10-19] MEDS: amLODIPine BESYLATE 5 MG TABLET PO SCH (08:07)
[2019-10-19] MEDS: CETIRIZINE HCL 10 MG TABLET PO SCH (08:07)
[2019-10-19] MEDS: LACTOBACILLUS RHAMNOSUS GG 1 CAPSULE. PO SCH (08:07)
[2019-10-19] MEDS: GLUCOSAMINE/CHOND 500/400MG CAPSULE PO SCH (08:07)
[2019-10-19] MEDS: SENNOSIDES/DOCUSATE 8.6/50MG TABLET. PO SCH (08:08)
[2019-10-19] MEDS: DULoxetine HCL 60 MG CAPSULE.DR PO SCH (08:08)
[2019-10-19] MEDS: BACLOFEN 10 MG TABLET PO SCH (08:08)
[2019-10-19] MEDS: busPIRone 5 MG TABLET. PO SCH (08:08)
[2019-10-19] MEDS: FAMOTIDINE 20 MG TABLET PO SCH (08:08)
[2019-10-19] MEDS: FOLIC ACID 1 MG TABLET PO SCH (08:08)
[2019-10-19] MEDS: PYRIDOXINE 50 MG TABLET. PO SCH (08:09)
[2019-10-19] MEDS: ASPIRIN ENTERIC COATED 81 MG TABLET.DR. PO SCH (08:09)
[2019-10-19] MEDS: AMANTADINE HCL 100 MG CAPSULE PO SCH (08:09)
[2019-10-19] MEDS: POLYVINYL ALCOHOL 1.4% OPHTH SOLUTION 15ML BOTTLE. OU SCH (08:10)
--- NOTE | 2019-10-19 09:48 | PN ---
DATE: 10/18/2019 PSYCHIATRIC PROGRESS NOTE This late entry October 17 covers elements not covered in my initial note. SUBJECTIVE: I met with the patient evening of October 17. Per RONNIE Rizzo, the patient has done better, slept reasonably. Denies suicidal ideation, is pleasant, calm. She was listening to music on her [employer] as I met with her in the evening. REVIEW OF SYSTEMS: Ambulation impaired, in wheelchair. No CV, , pulmonary, eye system symptoms on review. MENTAL STATUS EXAM: Reasonably oriented. Speech is coherent. Abstraction fair. Computation impaired. Language function intact. Attention span short. Mood and affect is improved. She is very verbal, animated and appreciative of the care she has received while being here. No suicidal ideation. LABORATORY DATA: Reviewed. IMPRESSION: Major depressive disorder, severe, in partial remission; anxiety disorder, unspecified. Rest unchanged. PLAN: No change from initial note with possible discharge in the next day or two. KELLY MARIE MD DR: JANIYA/rima JOB#: [id number] / [id number]
--- NOTE | 2019-10-19 11:26 | NUR ---
SW spoke to pt. father, Silverio, to let him know pt. would be discharging this a.m.
--- NOTE | 2019-10-19 11:54 | NUR ---
Transition Record was faxed to follow-up provider with the following elements: Reason for admission, procedures, tests, principal diagnosis, pending studies, patient instructions, 02/03 contact information for unit, phone number to obtain pending test results, plan for follow-up care, physician follow-up, advanced directive information, and medication list with dose, duration and instructions. This information was included in the following documents: History and physical, lab results, study results, progress notes, social work planning form, DC instruction form, patient visit summary, and medication reconciliation form. Date & time record faxed: 10/19/19@ [phone] Record faxed to: Nawaf Banuelos Record discussed with/ report given to: srinivasa Alamo
--- NOTE | 2019-10-19 17:25 | DS ---
DATE OF DISCHARGE: 10/19/2019 DISCHARGE SUMMARY AND PSYCHIATRIC PROGRESS NOTE This note covers elements not covered in my initial note of 10/19/2019. REASON FOR ADMISSION: Please refer to the admission history for details. Briefly, the patient is a 69-year-old female referred to us from [facility] by her primary care physician on account of worsening symptoms of depression and wanting "to end it all." After she arrived in the unit, she denied suicidal ideation. She does have multiple health problems that require placement in facility including Parkinson's and multiple sclerosis. The patient was having crying spells, stated she wanted to "go to sleep and not wake up." The patient had failed outpatient psychiatric interventions. Behaviors deemed dangerous with the suicidal statements referred for inpatient psychiatric stabilization. SIGNIFICANT FINDINGS AND CLINICAL COURSE: Following admission, the patient was seen daily individually by myself from a psychiatric standpoint, medical followup per Dr. Christina. The patient was somewhat depressed, anxious, minimize the suicidal ideation. Adjustments were made in her psychotropic. She seemed to respond to a combination of Cymbalta 60 mg a day and the Paxil was tapered down and discontinued. BuSpar was at 5 mg t.i.d. REVIEW OF SYSTEMS: Prior to discharge, ambulation impaired, in wheelchair. No CV, , pulmonary, eye system symptoms on review. MENTAL STATUS EXAMINATION: The patient is reasonably oriented. Speech has some latency, coherent. Abstraction fair, computation impaired, language function intact. Mood and affect improved. No suicidal ideation prior to discharge. CONDITION AT DISCHARGE: Improved. FINAL DIAGNOSES: Major depressive disorder, recurrent, in partial remission; anxiety disorder, unspecified. Rest unchanged from admission. DISCHARGE MEDICATIONS: Please refer to the MRAD. DISCHARGE INSTRUCTIONS: Outpatient psychiatric and medical followup at the alf. MAN Gaurav MARIE MD DR: JANIYA/rima JOB#: [id number] / [id number]
--- NOTE | 2019-10-19 22:01 | PDOC ---
Exam Note: Matt Note: Please also refer to the separate dictated note~for this date of service dictated separately.~Patient seen individually. Discussed the patient with Nursing staff reviewed the chart.~Reviewed interim history and current functioning. Reviewed vital signs,~Labs/ Radiology~and current medications noted below. Continue current treatment with the changes noted in the dictated addendum note Assessment: Vital Signs/I&O: Vital Signs Date Time Temp Pulse Resp B/P (MAP) Pulse Ox O2 Delivery O2 Flow Rate FiO2 10/19/19 08:07 86 135/72 10/19/19 06:22 96.9 20 97 10/15/19 19:52 Room Air I & O 10/18/19 10/18/19 10/19/19 15:00 23:00 07:00 Intake Total 960 ml 360 ml Balance 960 ml 360 ml Current Medications: I have reviewed the current psychotropics carefully including drug interactions. Risk benefit ratio favors no change other than as noted in my dictated progress note. Diagnosis: Problems: (1) Mild cognitive impairment (2) Depression (3) Anxiety disorder (4) Suicidal ideation (5) Major depressive disorder, recurrent episode (6) Impulse control disorder KELLY MARIE MD Oct 19, 2019 22:01
== END 2019-10-19 11:40 | DRG 885 ==
LOC: ER 17:32 → GEROPSY 21:58
PROVIDERS: ADMIT Psychiatry & Neurology Psychiatry; ATTEND Psychiatry & Neurology Psychiatry
DX: F33.41 Major depressive disorder, recurrent, in partial remission (principal); R45.851 Suicidal ideations; F03.91 Unspecified dementia, unspecified severity, with behavioral disturbance; N39.0 Urinary tract infection, site not specified; F41.9 Anxiety disorder, unspecified; E03.9 Hypothyroidism, unspecified; G20 Parkinson's disease; K21.9 Gastro-esophageal reflux disease without esophagitis; I25.10 Atherosclerotic heart disease of native coronary artery without angina pectoris; I12.9 Hypertensive chronic kidney disease with stage 1 through stage 4 chronic kidney disease, or unspecified chronic kidney disease; F63.9 Impulse disorder, unspecified; G35 Multiple sclerosis; G89.29 Other chronic pain; K59.00 Constipation, unspecified; N18.9 Chronic kidney disease, unspecified; Z79.899 Other long term (current) drug therapy
CPT/HCPCS: 36415; 80053; 80061; 81001; 82306; 82607; 83036; 83540; 83550; 83735; 84436; 84443; 84480; 85025; 86592; 87086; 87186; 93005; P9612; 99285-25